=== PATIENT | female | born 1955 | race Caucasian/White ===

== ENCOUNTER 2017-01-03 06:15 | Inpatient (IN) ==
[2017-01-03] MEDS ORDERED: ALBUTEROL/IPRATROPIUM 3 ML NEB RESP TX STA (06:35)
[2017-01-03] MEDS ORDERED: methylPREDNISolone SOD SUC 125 MG/2 ML VIAL IV STA (06:35)
[2017-01-03] MEDS ORDERED: methylPREDNISolone SOD SUC 125 MG/2 ML VIAL ONE (06:42)
--- NOTE | 2017-01-03 06:42 | Emergency Department Note ---
Brian Ruffin Mantricia, am scribing for, and in the presence of, Juan Jose Rossi MD 06:39. Enid Ruffin James D, MD, personally performed the services described in this documentation, ascribed by Anitra Torres in my presence, and it is both accurate and complete 642 . Arrival - Arrival Chief Complaint: Shortness of Breath Stated Complaint: sob ED Nursing Triage Note: Patient stated that she requested that she be brought to the doctor yesterday afternoon to be seen for possible pneumonia. The correction staff stated that the patient was seen and they did not see where the patient needed to be seen in the er. correction staff stated that the patient started complaoining of severe shortness of breath and cramping this morning around 0500 Mode of Arrival: Stretcher Limitations: No Limitations Source: Patient, RN Notes Reviewed - History of Present Illness HPI Narrative: Pt is a 61 y/o white female arriving to ED by EMS with c/o SOB that onset 0500 this morning. Pt was seen by doctor yesterday for evaluation of possible pneumonia. She also c/o cramps throughout her ribs and back and midsternal chest pain. Pt is a resident at [facility]. She reports that she has always been SOB but worsened today. Pt states that she uses a nebulizer with minimal relief. Pt has a stent placed. She reports no other complaints to ED. patient is well-known to the emergency department with multiple admissions for exacerbation of COPD. She is now followed by Dr. Juanita Mckenzie. Patient admits that she continues to smoke cigarettes. Onset (ago): hour(s) Consistency: constant Severity: mild Allergies/Adverse Reactions: Allergies Allergy/AdvReac Type Severity Reaction Status Date / Time codeine Allergy HIVES, Verified 08/02/16 23:06 Nausea levofloxacin [From Levaquin] Allergy RASH Verified 08/03/16 00:24 Home Medications: Home Medications Medication Instructions Recorded Confirmed Type Clopidogrel [Plavix] 75 mg PO DAILY #30 tablet 08/09/16 01/03/17 Rx Aspirin [Ecotrin] 81 mg PO DAILY 09/09/16 01/03/17 History Atorvastatin [Lipitor] 20 mg PO BEDTIME #30 tablet 09/19/16 01/03/17 Rx Docusate Sodium Cap [Colace Cap] 100 mg PO BID PRN #60 capsule 09/19/16 Rx Acetaminophen Tab [Tylenol Tab] 650 mg PO Q4H PRN #0 tablet 09/27/16 01/03/17 Rx Albuterol/Ipratropium Neb [Duoneb] 3 ml RESP TX RT Q6H 09/27/16 01/03/17 Rx HYDROcodone/ACETAMIN 10-325 [[place] 1 tablet PO Q6H PRN #20 tablet 09/27/1601/03 Rx 10-325] Lactulose Liquid [Chronulac] 20 gm PO Q4H PRN #0 09/27/16 01/03/17 Rx Oxybutynin Xl [Ditropan Xl] 10 mg PO DAILY tablet 09/27/16 01/03/17 Rx Pantoprazole Tab [Protonix Tab] 40 mg PO BID #60 tablet 09/27/16 01/03/17 Rx Azithromycin Tab [Zithromax Tab] 500 mg PO DAILY #3 tablet 10/05/16 01/03/17 Rx Diazepam Tab [Valium Tab] 2 mg PO TID PRN #30 tablet 10/05/16 01/03/17 Rx predniSONE TAB [PredniSONE] 20 mg PO DAILY #20 tablet 10/05/16 01/03/17 Rx Review of System - Review of System 12 point system: reviewed and no additional remarkable complaints except as stated - Review of System Constitutional: Absent: chills, diaphoresis, fever Respiratory: Present: other (SOB). Absent: cough Cardiovascular: Present: chest pain, other ("rib cramping") Gastrointestinal: Absent: abdominal pain, nausea, vomiting, diarrhea Medical,Surgical,& Family Hx - Medical History Cardio: History of: CAD, [place] Psychological: History of: Anxiety Disorders, Depression (started 6 months ago) Neurology: History of: Cerebrovascular Accident (non diagnosed but presumed by patient from symptoms), Migraine, TIA HEENT: History of: Eye Problem ("legally blind"), Dental Problems (WEARS DENTURES) No history of: Ear Problem Respiratory: History of: Asthma, Bronchitis, COPD, Intubation, Pneumonia, Respiratory Problems Genitourinary: History of: Bladder Problem (Incontinence), Recurring Urinary Tract Infections, Problems (stress incontinence) Gastrointestinal: History of: Hemorrhoids Musculoskeletal: History of: Back/Neck Problems, Musculoskeletal Problems ( SCOLIOSIS) - Surgical History Cardiac Surgeries: Sugical HX of: Cardiac Catheterization (July 2016) Patient Denies: Femoral-Popliteal Bypass Graft, Cardiac Surgery, Carotid Endarterectomy, Internal Defibrillator, Vascular Access Devices Thoracic Surgeries: Patient denies;: Lobectomy Neurologic Surgeries: Patient denies: Neurologic Surgery HEENT Surgeries: Patient denies: Carotid Endarterectomy, Eye Surgery, Thyroid Surgery, Tonsilectomy & Adenoidectomy Abdominal Surgeries: Surgical HX of: Appendectomy, EGD Patient denies: Abdominal Surgery, Cholecystectomy, Colonoscopy, Gastric Bypass Surgery, Hernia Repair, Splenectomy Reproductive Surgeries: Surgical HX of;: Section (x 3), Gynecologic Surgery, Tubal Ligation Patient denies;: Breast Surgery, Dilation and Curettage, Genitourinary Surgery, Hysterectomy - Family History Family History: Reports;: Family Cancer (mat aunt (breast)), Family Diabetes ( father, pat gm), Family Heart Disease (mother (chf)), Family Hypertension ( father, son), Family Stroke (MOTHER) Denies;: Family Psychiatric Problems - Social History Smoking Status: Smoker, status unknown Exam Physical Examination: ADULT: GENERAL: This is a frail, chronically and acutely ill-appearing white female in mild respiratory distress. VITAL SIGNS: Reviewed HEENT: Head is normocephalic and atraumatic. Pupils are equally round and reactive to light. Extraocular movement are intact. Oropharynx is benign with moist mucous membranes. NECK: Neck is soft and supple without tenderness. There are no masses. There is no lymphadenopathy. LUNGS: Decreased breath sounds in all lung phillip with prolonged expiration. Chest rises symmetrically. There is no chest wall tenderness. Severe kyphoscoliosis is present. CV: Heart is regular rate and rhythm without murmurs, rubs, or gallops. ABDOMEN: Abdomen is soft, non-tender to palpation. There are no abnormal masses palpated. There is no organomegaly. Bowel sounds are present and active. SKIN: Skin is warm and dry. No rash. EXTREMITIES: Patient has full range of motion without tenderness. There is no pedal edema. NEUROLOGIC: Awake, alert, and oriented x4. Cranial nerves II through XII are grossly intact. There are no motorsensory deficits. PSYCHIATRIC: Normal affect. Normal mood. Vital Signs: Vital Signs Temperature 98.1 F 01/03/17 06:19 Pulse Rate 118 H 01/03/17 06:42 Respiratory Rate 20 01/03/17 06:42 Blood Pressure 125/89 01/03/17 06:19 O2 Sat by Pulse Oximetry 98 01/03/17 06:42 Course Course Narrative: Rocephin 1 g IV was given in the emergency department along with DuoNeb, and Solu-Medrol IV. - Consultations Consultation #1: Discussed with Dr. Juanita Mckenzie. Patient will be admitted to her service. Initial orders written for her. Upon talking with Dr. Mckenzie, Dr. Mckenzie was terminated by the patient and the patient is now followed by Dr. Coreas at [facility]. Patient will be admitted to the hospitalist service. Time: 06:55 Consultation #2: Discussed with hospitalist. Patient will be admitted to their service. Time: 07:09 Results - Labs CBC & BMP: 01/03/17 06:27 Lab Results: I have reviewed the patients labs Labs: Laboratory Tests 01/03/17 06:27 Troponin I < 0.015 Laboratory Tests 01/03/17 01/03/17 06:27 06:27 INR 1.0 Sodium 138 Potassium 4.6 Chloride 99 Carbon Dioxide 35 H Anion Gap 8.6 BUN 17 Creatinine 0.50 L BUN/Creatinine Ratio 34.00 H Glucose 119 H Magnesium 2.0 - EKG EKG results: interpreted by ERMD - Impressions EKG: Sinus tachycardia with a rate of 116, short OK interval, right atrial enlargement, normal axis. Nonspecific ST-T wave changes. - Diagnostic Findings Procedure: Chest x-ray: image reviewed by me (Hyperinflation bilaterally without significant infiltrates. No cardiomegaly.) Disposition Clinical Impression: COPD exacerbation, Chronic respiratory failure, Chest pain, Nicotine addiction , SIRS (systemic inflammatory response syndrome), Chronic anxiety Case discussed with: patient Disposition: Still a Patient Condition: Stable Time of Disposition: 07:10
[2017-01-03 06:45] LABS: Basophils # 0.1 10*3/uL (0.0-0.2); Basophils % 0.3 % (0.0-0.8); Eosinophils # 0.1 10*3/uL (0.0-0.87); Eosinophils % 0.3 % (0.00-10.9); Hematocrit 44.9 VOL% (35.7-47.0); Hemoglobin 14.3 GM/DL (12.0-16.0); Immature Granulocytes % 1.1 %; Immature Granulocytes Absolute 0.41 #; Lymphocytes % 10.9 % (21.3-54.2); Mean Corpuscular HGB Conc 31.8 GM/DL (32-36); Mean Corpuscular Hemoglobin 29 PG (27-34); Mean Corpuscular Volume 89.8 FL (87-102); Mean Platelet Volume 9.9 FL (9.6-12.0); Monocytes % 5.5 % (1.7-12.7); Neutrophils # 30.4 10*3/uL (1.4-7.4); Neutrophils % 81.9 % (38.7-73.9); Platelet Count 309 T/CUMM (130-400); Red Cell Distribution Width 15.5 % (9.3-17.3); White Blood Count 37.1 T/CUMM (4-12)
[2017-01-03] MEDS ORDERED: ASPIRIN 325 MG TABLET PO STA (06:49)
[2017-01-03] MEDS ORDERED: cefTRIAXone 1,000 MG in SODIUM CHLORIDE 0.9% 100 ML IV STA (06:49)
[2017-01-03 06:51] LABS: PT Patient Result 11.1 SECS; Partial Thromboplastin Time 24.1 SECS (0-40)
[2017-01-03] MEDS ORDERED: SODIUM CHLORIDE 0.9% 500 ML IV STA (06:51)
[2017-01-03] MEDS ORDERED: cefTRIAXone 1,000 MG VIAL ONE (06:55)
[2017-01-03] MEDS ORDERED: SODIUM CHLORIDE 0.9% 100 ML IV ONE (06:55)
[2017-01-03] MEDS ORDERED: ASPIRIN 325 MG TABLET ONE (06:55)
[2017-01-03 06:56] LABS: Alanine Aminotransferase 24 U/L (13-56); Albumin 3.5 G/DL (3.4-5.0); Alkaline Phosphatase 117 U/L (45-117); Aspartate Amino Transferase 29 U/L (0-37); Blood Urea Nitrogen 17 MG/DL (7-18); Calcium 9.6 MG/DL (8.5-10.1); Glucose 119 MG/DL (74-106); Osmolality,Calculated 277.7 MOS/KG (273-304); Potassium 4.6 MMOL/L (3.5-5.1); Sodium 138 MMOL/L (136-145); Total Protein 7.2 G/DL (6.4-8.3); Troponin I Only < 0.015 NG/ML (0.00-0.045)
[2017-01-03] MEDS ORDERED: LORazepam 1 MG TABLET PO STA (06:59)
[2017-01-03] MEDS ORDERED: LORazepam 1 MG TABLET ONE (07:02)
[2017-01-03 07:09] LABS: Eosinophils 2 % (0-10); Hypochromasia 1+; Lymphocytes 7 % (20-55); Microcytosis Slight; Segmented Neutrophils 87 % (50-85); Total Cells Counted 100
[2017-01-03 07:10] LABS: Platelet Estimate Normal
--- NOTE | 2017-01-03 07:11 | XRay Report ---
History short of breath Comparison 10/03/2016 The heart is mildly enlarged. Mediastinal and hilar contours grossly unchanged accounting for rotation The lungs are chronically hyperexpanded with chronic lucency in the upper lung zones There has been development of increasing reticulonodular and hazy opacity in the lower half of the right chest. There are mildly increasing interstitial markings in the left chest Nodular density over the left upper chest similar on prior studies Impression: Interval development of right greater than left infiltrates versus asymmetric edema superimposed on chronic changes. Follow-up until clear recommended PROCEDURE INTERPRETED AT [facility] DEPARTMENT OF RADIOLOGY Final Report Signed by: Dr. Marisol Castillo
--- NOTE | 2017-01-03 08:24 | Hospitalist History & Physical ---
Assessment and Plan - Time spent with patient Time spent with patient: Greater than 30 minutes (1) COPD exacerbation Status: Chronic Assessment and plan: Patient is satting 100% on 2 L oxygen per nasal cannula. We will admit to monitor. Obtain CBC, BMP with mag, ABG, troponin, blood cultures. Will repeat chest x-ray 48 hours. Breathing treatments. Consult pulmonology. Current Visit: No (2) Leukocytosis Status: Resolved Assessment and plan: WBC 37.1. Have ordered blood cultures. Will begin empiric antibiotic therapy was blood cultures are collected. Current Visit: No (3) Pneumonia Status: Acute Assessment and plan: WBC 37.1 Egophony in right middle lobe. Once blood cultures have been obtained , will start empiric antibiotic coverage. Current Visit: No Qualifiers: Pneumonia type: due to unspecified organism Laterality: unspecified laterality (4) Sepsis Status: Resolved Assessment and plan: Patient is tachycardic, white count of 37.1, lactic acid 2.7. Current Visit: No Qualifiers: Sepsis type: sepsis due to unspecified organism Qualified Code(s): A41.9 - Sepsis, unspecified organism (5) Pleuritic chest pain Status: Acute Current Visit: No History of Present Illness Chief complaint: COPD exacerbation History of present illness: Ms. Iniguez is a 61 year old white female resident of [facility] with a past medical history significant for chronic obstructive pulmonary disease, anxiety, panic disorder, coronary artery disease, myocardial infarction lumbar spondylosis, and nicotine abuse who presents to the ED this morning with complaints of shortness of breath and chest pain that onset this morning and 0500. Patient was followed by Dr. Juanita Mckenzie but recently changed to Dr. Lulu Coreas. At the time of presentation, the patient does complain of worsening shortness of breath, midsternal chest pain that is reproducible to palpation, and costochondral pain as well as back cramps. Patient states she has never had these cramps alongside her size and back before. She confirms headache, shortness of breath, chest pain, nonproductive cough, wheezing, nausea, and decreased appetite. She denies blurry vision, radiating chest pain, vomiting, edema. Lab work at a time admission reveals: WBC 37.1, sodium 138, potassium 4.6, carbon dioxide 35, BUN 17, creatinine 0.50, glucose 119, lactic acid 2.7. Patient is tachycardic as well so we will use the sepsis order set. Patient is a full code. Home meds have been reviewed and reconciled. Case been discussed with Dr. Rossi, ER physician, and Dr. Melvin, admitting physician, and the patient will be admitted to hospital medicine service for further evaluation and treatment. Home Medications Medication Instructions Recorded Confirmed Type Clopidogrel [Plavix] 75 mg PO DAILY #30 tablet 08/09/16 01/03/17 Rx Aspirin [Ecotrin] 81 mg PO DAILY 09/09/16 01/03/17 History Atorvastatin [Lipitor] 20 mg PO BEDTIME #30 tablet 09/19/16 01/03/17 Rx Docusate Sodium Cap [Colace Cap] 100 mg PO BID PRN #60 capsule 09/19/16 Rx Acetaminophen Tab [Tylenol Tab] 650 mg PO Q4H PRN #0 tablet 09/27/16 01/03/17 Rx Albuterol/Ipratropium Neb [Duoneb] 3 ml RESP TX RT Q6H 09/27/16 01/03/17 Rx HYDROcodone/ACETAMIN 10-325 [[place] 1 tablet PO Q6H PRN #20 tablet 09/27/1601/03 Rx 10-325] Lactulose Liquid [Chronulac] 20 gm PO Q4H PRN #0 09/27/16 01/03/17 Rx Oxybutynin Xl [Ditropan Xl] 10 mg PO DAILY tablet 09/27/16 01/03/17 Rx Pantoprazole Tab [Protonix Tab] 40 mg PO BID #60 tablet 09/27/16 01/03/17 Rx Azithromycin Tab [Zithromax Tab] 500 mg PO DAILY #3 tablet 10/05/16 01/03/17 Rx Diazepam Tab [Valium Tab] 2 mg PO TID PRN #30 tablet 10/05/16 01/03/17 Rx predniSONE TAB [PredniSONE] 20 mg PO DAILY #20 tablet 10/05/16 01/03/17 Rx Allergies Allergy/AdvReac Type Severity Reaction Status Date / Time codeine Allergy HIVES, Verified 08/02/16 23:06 Nausea levofloxacin [From Levaquin] Allergy RASH Verified 08/03/16 00:24 Medical,Surgical,& Family Hx - Medical History Cardio: History of: CAD, [place] Psychological: History of: Anxiety Disorders, Depression (started 6 months ago) Neurology: History of: Cerebrovascular Accident (non diagnosed but presumed by patient from symptoms), Migraine, TIA HEENT: History of: Eye Problem ("legally blind"), Dental Problems (WEARS DENTURES) No history of: Ear Problem Respiratory: History of: Asthma, Bronchitis, COPD, Intubation, Pneumonia, Respiratory Problems Genitourinary: History of: Bladder Problem (Incontinence), Recurring Urinary Tract Infections, Problems (stress incontinence) Gastrointestinal: History of: Hemorrhoids Musculoskeletal: History of: Back/Neck Problems, Musculoskeletal Problems ( SCOLIOSIS) - Surgical History Cardiac Surgeries: Sugical HX of: Cardiac Catheterization (July 2016) Patient Denies: Femoral-Popliteal Bypass Graft, Cardiac Surgery, Carotid Endarterectomy, Internal Defibrillator, Vascular Access Devices Thoracic Surgeries: Patient denies;: Lobectomy Neurologic Surgeries: Patient denies: Neurologic Surgery HEENT Surgeries: Patient denies: Carotid Endarterectomy, Eye Surgery, Thyroid Surgery, Tonsilectomy & Adenoidectomy Abdominal Surgeries: Surgical HX of: Appendectomy, EGD Patient denies: Abdominal Surgery, Cholecystectomy, Colonoscopy, Gastric Bypass Surgery, Hernia Repair, Splenectomy Reproductive Surgeries: Surgical HX of;: Section (x 3), Gynecologic Surgery, Tubal Ligation Patient denies;: Breast Surgery, Dilation and Curettage, Genitourinary Surgery, Hysterectomy - Family History Family History: Reports;: Family Cancer (mat aunt (breast)), Family Diabetes ( father, pat gm), Family Heart Disease (mother (chf)), Family Hypertension ( father, son), Family Stroke (MOTHER) Denies;: Family Psychiatric Problems - Social History Smoking Status: Smoker, status unknown Frequency of Alcohol Use: None Type of Drug Use: None Marital Status: Single Lives With:: senior living Functional capacity: independent ambulation 12 point system: reviewed and no additional remarkable complaints except as stated Exam - Constitutional Vitals: Period Temp Pulse Resp BP Sys/Cabrales Pulse Ox Last 24 Hr 98.1 F-98.1 F 110-122 20-24 125-145/41-89 97-100 General appearance: normal weight, mild distress - Head Head exam: Present: normal inspection, normocephalic - Eye Eye exam: Present: EOMI Pupils: Present: PHI - ENT ENT exam: Present: normal exam - Neck Neck exam: Present: normal inspection - Respiratory Respiratory exam: Present: decreased breath sounds, rales, wheezes - Cardiovascular Cardiovascular exam: Present: tachycardia. Absent: carotid bruit - GI/Abdominal GI/Abdominal exam: Present: normal bowel sounds, soft. Absent: ascites, distended, mass, tenderness - Extremities Exam Extremities exam: Present: normal inspection, full ROM. Absent: edema - Back Exam Back exam: Present: normal inspection. Absent: CVA tenderness (L), CVA tenderness (R) - Neurological Exam Neurological exam: Present: alert, oriented X3, reflexes normal - Psychiatric Psychiatric exam: Present: normal affect, normal mood - Skin Skin exam: Present: warm, dry Results - Labs CBC & BMP: 01/03/17 06:27 01/03/17 06:27 Lab Results: I have reviewed the past 24 hour labs - Diagnostic Findings Procedure: Chest x-ray: image reviewed by me, report reviewed by me (Pulmonary infiltrates (right > left), asymmetric edema) Sepsis - Sepsis Classification of Sepsis: Severe Sepsis - Physical Exam Respiratory exam: decreased breath sounds, rales, wheezes Capillary Refill: Less Than 3 Seconds Peripheral pulses: Radial (L): 2+, Radial (R): 2+, Dorsalis Pedis (L) PM: 2+, Dorsalis Pedis (R) PM: 2+, Posterior Tibialis (L): 2+, Posterior Tibialis (R): 2 + Cardiovascular exam: tachycardia Skin exam: normal color
[2017-01-03 08:28] LABS: Apearance,Urine Slightly Hazy (Clear); Bacteria,Urine Occasional /HPF (Few); Bilirubin,Urine Negative (Negative); Blood, Urine Negative (Negative); Glucose,Urine (UA) Negative (Negative); Ketones,Urine Negative (Negative); Mucus,Urine Occasional /LPF (Occasional); Nitrite,Urine Negative (Negative); Protein,Urine 100 MG/DL; RBC,Urine 2 /HPF (0-4); Squamous Epithelial Cell,Urine Occasional /HPF (0-10); Urine Color Yellow (Yellow); Urine Specific Gravity 1.014 (1.001-1.035); WBC,Urine 1 /HPF (0-6)
[2017-01-03] MEDS ORDERED: ONDANSETRON 4 MG/2 ML VIAL IV PRN (08:58)
[2017-01-03] MEDS ORDERED: SODIUM CHLORIDE 0.9% 1,000 ML IV SCH (08:58)
[2017-01-03] MEDS ORDERED: DIAZEPAM 2 MG TABLET PO PRN (09:05)
[2017-01-03] MEDS ORDERED: LACTULOSE 20 GM/30 ML UDCUP PO PRN (09:05)
[2017-01-03] MEDS: SODIUM CHLORIDE 0.9% 1,000 ML IV SCH ×2 (09:11→17:18)
[2017-01-03] MEDS: ACETAMINOPHEN 325 MG TABLET PO PRN ×2 (09:14→20:03)
[2017-01-03] MEDS ORDERED: SODIUM CHLORIDE 0.9% 1,650 ML IV ONE (09:30)
[2017-01-03] MEDS: ASPIRIN EC 81 MG TABLET PO SCH (09:38)
--- NOTE | 2017-01-03 09:40 | EKG Report ---
Stationary ECG Study [facility] ER Test Date: 01/03/2017 6:52:46 AM Pat Name: TREVOR HOPSON Department: Room: 236 Gender: F [employer]ill Worker: : 1955 Requested by: Juan Jose Mcmanus Order Number: [id number] Reading MD: ALEJANDRO BAKER Intervals Hart Rate: 116 P: 82 AR: 115 QRS: 82 QRSD: 75 T: 78 QT: 324 QTc: 393 Interpretive Statements SINUS TACHYCARDIA WITH SHORT AR INTERVAL POOR QUALITY BASELINE Electronically Signed On 01-05-17 15:44:54 CDT by ALEJANDRO BAKER [email or web address]
[2017-01-03 09:50] LABS: Allen Test Positive
[2017-01-03] MEDS: POTASSIUM CHLORIDE 20 MEQ/15 ML UDCUP PO SCH (09:50)
[2017-01-03] MEDS: predniSONE 20 MG TABLET PO SCH (09:51)
[2017-01-03] MEDS: FLUTICASONE/SALMETEROL 250-50 DISKUS 14 DOSE INH SCH ×2 (09:51→20:36)
[2017-01-03] MEDS: PANTOPRAZOLE 40 MG TABLET PO SCH (09:51)
[2017-01-03] MEDS: DOCUSATE SODIUM 100 MG CAPSULE PO SCH ×2 (09:51→20:36)
[2017-01-03] MEDS: CLOPIDOGREL 75 MG TABLET PO SCH (09:51)
[2017-01-03] MEDS: ESCITALOPRAM 10 MG TABLET PO SCH (09:51)
[2017-01-03 09:52] LABS: ABG Base Excess 5.9 MMOL/L (-2.5-2.5); ABG HCO3 29.8 MMOL/L (20-26); ABG Oxygen Saturation 97.4 % (95-100); ABG PCO2 55.1 MM HG (35-48); ABG PH 7.381 (7.35-7.45); ABG PO2 97.2 MM HG (80-95); ABG TCO2 28.9 MMOL/L (23-27)
[2017-01-03] MEDS: OXYBUTYNIN XL 10 MG TABLET PO SCH (09:52)
[2017-01-03] MEDS: ENOXAPARIN 40 MG/0.4 ML SYRINGE SUBCUT SCH (09:52)
[2017-01-03] MEDS: hydroCHLOROthiazide 12.5 MG CAPSULE PO SCH (09:52)
[2017-01-03] MEDS: ALBUTEROL/IPRATROPIUM 3 ML NEB RESP TX SCH ×4 (12:32→23:10)
--- NOTE | 2017-01-03 14:29 | Pulmonology Consult Note ---
Assessment and Plan (1) COPD exacerbation Status: Chronic Assessment and plan: Patient has severe COPD and she is now in with a mild exacerbation. She looks reasonably stable at present. Current Visit: No (2) Pneumonia Status: Acute Assessment and plan: Patient may have some minimal pneumonia in the bases. She will be covered with antibiotics. Current Visit: No Qualifiers: Pneumonia type: due to unspecified organism Laterality: unspecified laterality (3) Tobacco abuse Status: Chronic Assessment and plan: The patient has a long history of smoking and she says she is doing better Current Visit: No (4) Coronary artery disease Status: Acute Assessment and plan: Patient has atypical chest pain but no signs of ischemia at present. Current Visit: No (5) Chronic anxiety Status: Acute Assessment and plan: Patient requires a lot of medications for anxiety. Current Visit: Yes History of Present Illness Chief complaint: Shortness of breath History of present illness: Ms. Iniguez is a 61 year old white female that has a long history of COPD and is now in a half-way. She has home oxygen and says she really cannot walk much without oxygen. She came in with increased chest congestion and chest tightness. She has been coughing a little bit. She did have a fever the last day or so. She comes in now with an exacerbation of her COPD. She has various aches and pains along with her chest pain. She says she has not been eating very well lately. She does use a nebulizer at the half-way and has oxygen . Home Medications Medication Instructions Recorded Confirmed Type Clopidogrel [Plavix] 75 mg PO DAILY #30 tablet 08/09/16 01/03/17 Rx Aspirin [Ecotrin] 81 mg PO DAILY 09/09/16 01/03/17 History Atorvastatin [Lipitor] 20 mg PO BEDTIME #30 tablet 09/19/16 01/03/17 Rx Docusate Sodium Cap [Colace Cap] 100 mg PO BID PRN #60 capsule 09/19/16 Rx Acetaminophen Tab [Tylenol Tab] 650 mg PO Q4H PRN #0 tablet 09/27/16 01/03/17 Rx Lactulose Liquid [Chronulac] 20 gm PO Q4H PRN #0 09/27/16 01/03/17 Rx Oxybutynin Xl [Ditropan Xl] 10 mg PO DAILY tablet 09/27/16 01/03/17 Rx Diazepam Tab [Valium Tab] 2 mg PO BID PRN 01/03/17 01/03/17 History Escitalopram Oxalate [Lexapro] 5 mg PO DAILY 01/03/17 01/03/17 History Fluticasone/Salmeterol 250-50 1 puff INH BID 01/03/17 01/03/17 History [Advair 250-50] Ipratropium Neb [Atrovent Neb] 500 mcg RESP TX RT Q6H 01/03/17 01/03/17 History Levalbuterol Neb [Xopenex Neb] 1.25 mg RESP TX RT Q6H 01/03/17 01/03/17 History Melatonin/Pyridoxine [Melatonin 5 10 mg PO BEDTIME 01/03/17 01/03/17 History mg Tablet] Nitroglycerin [Nitroglycerin SL 0.4 mg SL Q5M PRN 01/03/17 01/03/17 History Tab] Omeprazole Magnesium [Prilosec Otc] 20 mg PO BEDTIME 01/03/17 01/03/17 History Oxycodone HCl/Acetaminophen 1 each PO TID 01/03/17 01/03/17 History [Percocet 10-325 mg Tablet] Potassium Chloride Liquid 10 meq PO DAILY 01/03/17 01/03/17 History hydroCHLOROthiazide 12.5 mg PO DAILY 01/03/17 01/03/17 History [Hydrochlorothiazide] predniSONE TAB [PredniSONE] 20 mg PO DAILY 01/03/17 01/03/17 History traZODone [Desyrel] 25 mg PO BEDTIME 01/03/17 01/03/17 History Allergies Allergy/AdvReac Type Severity Reaction Status Date / Time codeine Allergy HIVES, Verified 08/02/16 23:06 Nausea levofloxacin [From Levaquin] Allergy RASH Verified 08/03/16 00:24 Review of systems: - Constitutional Constitutional: Present: fatigue, weight loss. Absent: chills, fever(s) - EENT Eyes: Absent: loss of vision Ears: Absent: decreased hearing Nose, mouth and throat: Absent: dysphagia, hoarseness, sinus pressure - Cardiovascular Cardiovascular: Present: chest pain at rest, dyspnea. Absent: orthopnea, palpitations, PND - Respiratory Respiratory: Present: cough, dyspnea, wheezing, pain on inspiration. Absent: hemoptysis, change in phlegm color - Gastrointestinal Gastrointestinal: Absent: abdominal pain, change in bowel habits, vomiting. She says she has been nauseated and had a poor appetite lately. - Genitourinary Genitourinary: Absent: dysuria, hematuria, urinary frequency - Musculoskeletal Musculoskeletal: Present: muscle weakness. Absent: arthralgias - Neurological Neurological: Absent: abnormal speech, focal weakness - Psychiatric Psychiatric: Present: anxiety Exam (Pulmonay) H&P - Constitutional Vitals: Period Temp Pulse Resp BP Sys/Cabrales Pulse Ox Last 24 Hr 97.5 F-98.5 F 98-122 18-24 125-145/41-89 95-100 General appearance: mild distress, under weight - Head Head exam: Present: normal inspection, normocephalic - Eye Eye exam: Present: EOMI. Absent: scleral icterus Pupils: Present: PHI - ENT ENT exam: Present: normal exam - Neck Neck exam: Present: normal inspection. Absent: lymphadenopathy, thyromegaly - Respiratory Respiratory exam: Present: decreased breath sounds, prolonged expiratory phase, wheezes - Cardiovascular Cardiovascular exam: Present: regular rate and rhythm. Absent: gallop, systolic murmur - GI/Abdominal GI/Abdominal exam: Present: normal bowel sounds, soft. Absent: distended, organomegaly, tenderness - Extremities Exam Extremities exam: Absent: calf tenderness, edema - Neurological Exam Neurological exam: Present: alert, oriented X3 - Psychiatric Psychiatric exam: Present: anxious - Skin Skin exam: Present: warm, dry Medical,Surgical,& Family Hx - Medical History Cardio: History of: CAD, [place] Psychological: History of: Anxiety Disorders, Depression (started 6 months ago) Neurology: History of: Cerebrovascular Accident (non diagnosed but presumed by patient from symptoms), Migraine, TIA HEENT: History of: Eye Problem ("legally blind"), Dental Problems (WEARS DENTURES) No history of: Ear Problem Respiratory: History of: Asthma, Bronchitis, COPD, Intubation, Pneumonia, Respiratory Problems Genitourinary: History of: Bladder Problem (Incontinence), Recurring Urinary Tract Infections, Problems (stress incontinence) Gastrointestinal: History of: Hemorrhoids Musculoskeletal: History of: Back/Neck Problems, Musculoskeletal Problems ( SCOLIOSIS) - Surgical History Cardiac Surgeries: Sugical HX of: Cardiac Catheterization (July 2016) Patient Denies: Femoral-Popliteal Bypass Graft, Cardiac Surgery, Carotid Endarterectomy, Internal Defibrillator, Vascular Access Devices Thoracic Surgeries: Patient denies;: Lobectomy Neurologic Surgeries: Patient denies: Neurologic Surgery HEENT Surgeries: Patient denies: Carotid Endarterectomy, Eye Surgery, Thyroid Surgery, Tonsilectomy & Adenoidectomy Abdominal Surgeries: Surgical HX of: Appendectomy, EGD Patient denies: Abdominal Surgery, Cholecystectomy, Colonoscopy, Gastric Bypass Surgery, Hernia Repair, Splenectomy Reproductive Surgeries: Surgical HX of;: Section (x 3), Gynecologic Surgery, Tubal Ligation Patient denies;: Breast Surgery, Dilation and Curettage, Genitourinary Surgery, Hysterectomy - Family History Family History: Reports;: Family Cancer (mat aunt (breast)), Family Diabetes ( father, pat gm), Family Heart Disease (mother (chf)), Family Hypertension ( father, son), Family Stroke (MOTHER) Denies;: Family Psychiatric Problems - Social History Smoking Status: Smoker, status unknown Frequency of Alcohol Use: None Type of Drug Use: None Results - Labs CBC & BMP: 01/03/17 06:27 01/03/17 06:27 Labs: Her PO2 is 97 with a PCO2 of 55 and a pH of 7.38 - Diagnostic Findings Procedure: Chest x-ray: image reviewed by me, report reviewed by me (Chest x- ray shows COPD changes. There may be some mild infiltrates in the bases.)
[2017-01-03] MEDS: traZODone 50 MG TABLET PO SCH (20:35)
[2017-01-03] MEDS: ATORVASTATIN 40 MG TABLET PO SCH (20:36)
[2017-01-03] MEDS ORDERED: NON-FORMULARY MEDICATION (Omeprazole Magnesium [Prilosec Otc] 20 MG) PO SCH (21:00)
[2017-01-04] MEDS: SODIUM CHLORIDE 0.9% 1,000 ML IV SCH ×3 (02:03→18:02)
[2017-01-04] MEDS: ALBUTEROL/IPRATROPIUM 3 ML NEB RESP TX SCH ×6 (03:40→23:49)
[2017-01-04 05:36] LABS: Basophils % 0.1 % (0.0-0.8); Hematocrit 34.7 VOL% (35.7-47.0); Hemoglobin 10.7 GM/DL (12.0-16.0); Immature Granulocytes % 0.9 %; Immature Granulocytes Absolute 0.16 #; Lymphocytes # 0.8 10*3/uL (1.4-4.0); Lymphocytes % 4.8 % (21.3-54.2); Mean Corpuscular HGB Conc 30.8 GM/DL (32-36); Mean Corpuscular Hemoglobin 28 PG (27-34); Mean Corpuscular Volume 91.1 FL (87-102); Mean Platelet Volume 10.1 FL (9.6-12.0); Monocytes # 0.8 10*3/uL (0.11-0.8); Monocytes % 4.4 % (1.7-12.7); Neutrophils # 15.8 10*3/uL (1.4-7.4); Neutrophils % 89.8 % (38.7-73.9); Platelet Count 258 T/CUMM (130-400); Red Blood Count 3.81 MC/CUMM (3.8-5.5); White Blood Count 17.6 T/CUMM (4-12)
[2017-01-04 06:11] LABS: Hypochromasia 1+; Lymphocytes 5 % (20-55); Microcytosis Slight; Platelet Estimate Adequate; Segmented Neutrophils 94 % (50-85); Total Cells Counted 100
[2017-01-04 06:12] LABS: Calcium 8.2 MG/DL (8.5-10.1); Osmolality,Calculated 282.1 MOS/KG (273-304); Potassium 5.1 MMOL/L (3.5-5.1)
--- NOTE | 2017-01-04 08:05 | XRay Report ---
History short of breath Comparison 01/03/2017 Patient is rotated resulting These are shifted to the right. The accounting for this hilar contours are grossly unchanged. The heart is mildly enlarged The lungs are hyperexpanded with bilateral reticulonodular pulmonary opacities and minimal patchy opacities over the lung bases. No more focal consolidation seen Impression: Continued diffuse bilateral interstitial infiltrates versus edema superimposed on chronic changes. Follow-up recommended PROCEDURE INTERPRETED AT [facility] DEPARTMENT OF RADIOLOGY Final Report Signed by: Dr. Marisol Castillo
[2017-01-04] MEDS: cefTRIAXone 1,000 MG in SODIUM CHLORIDE 0.9% 100 ML IV SCH (08:42)
[2017-01-04] MEDS: ENOXAPARIN 40 MG/0.4 ML SYRINGE SUBCUT SCH (08:43)
[2017-01-04] MEDS: ESCITALOPRAM 10 MG TABLET PO SCH (08:43)
[2017-01-04] MEDS: POTASSIUM CHLORIDE 20 MEQ/15 ML UDCUP PO SCH (08:43)
[2017-01-04] MEDS: hydroCHLOROthiazide 12.5 MG CAPSULE PO SCH (08:43)
[2017-01-04] MEDS: PANTOPRAZOLE 40 MG TABLET PO SCH (08:45)
[2017-01-04] MEDS: OXYBUTYNIN XL 10 MG TABLET PO SCH (08:45)
[2017-01-04] MEDS: ASPIRIN EC 81 MG TABLET PO SCH (08:45)
[2017-01-04] MEDS: predniSONE 20 MG TABLET PO SCH (08:45)
[2017-01-04] MEDS: DOCUSATE SODIUM 100 MG CAPSULE PO SCH ×2 (08:45→21:40)
[2017-01-04] MEDS: CLOPIDOGREL 75 MG TABLET PO SCH (08:45)
[2017-01-04] MEDS: FLUTICASONE/SALMETEROL 250-50 DISKUS 14 DOSE INH SCH ×2 (08:48→21:40)
--- NOTE | 2017-01-04 11:55 | Pulmonology Progress Note ---
Pulmonary - PN: Subj Interval history: Patient is a 61-year-old white lady that has very severe COPD. She cannot do much activity at all without being short of breath. She is chronically on oxygen. She has lateral wall chest tightness but no angina. She has not coughing up much sputum now. She says she feels a little better than yesterday. She is tolerating her treatment fairly well. Exam (Progress Note) - Constitutional Vitals: Period Temp Pulse Resp BP Sys/Cabrales Pulse Ox Last 24 Hr 96.6 F-98.8 F 81-102 18-22 100-138/55-70 86-100 Exam: General appearance: mild distress, under weight, she is reasonably comfortable in bed but is always short of breath. - Head Head exam: Present: normal inspection, normocephalic - Eye Eye exam: Present: EOMI. Absent: scleral icterus Pupils: Present: PHI - ENT ENT exam: Present: normal exam - Neck Neck exam: Present: normal inspection. Absent: lymphadenopathy, thyromegaly - Respiratory Respiratory exam: Present: She has a very prolonged expiration with distant breath sounds and mild rhonchi. - Cardiovascular Cardiovascular exam: Present: regular rate and rhythm. Absent: gallop, systolic murmur - GI/Abdominal GI/Abdominal exam: Present: normal bowel sounds, soft. Absent: distended, organomegaly, tenderness - Extremities Exam Extremities exam: Absent: calf tenderness, edema, there are no signs of phlebitis. - Neurological Exam Neurological exam: Present: alert, oriented X3 - Psychiatric Psychiatric exam: Present: anxious - Skin Skin exam: Present: warm, dry Results - Labs CBC & BMP: 01/04/17 04:28 01/04/17 04:28 - Diagnostic Findings Procedure: Chest x-ray: image reviewed by me, report reviewed by me (Chest x- ray shows COPD changes but no infiltrates.) Assessment and Plan (1) COPD exacerbation Status: Chronic Assessment and plan: Patient has severe COPD and she is now in with a mild exacerbation. She is tolerating her medicines fairly well. She is comfortable on oxygen but cannot do much activity. Current Visit: No (2) Pneumonia Status: Acute Assessment and plan: Patient may have some minimal pneumonia in the bases. She will be covered with antibiotics. Chest x-ray looks better today. Current Visit: No Qualifiers: Pneumonia type: due to unspecified organism Laterality: unspecified laterality (3) Tobacco abuse Status: Chronic Assessment and plan: The patient has a long history of smoking and she says she is doing better. Current Visit: No (4) Coronary artery disease Status: Acute Assessment and plan: Patient has atypical chest pain but no signs of ischemia at present. Current Visit: No (5) Chronic anxiety Status: Acute Assessment and plan: Patient requires a lot of medications for anxiety. She looks like she is a little calmer today. Current Visit: Yes
[2017-01-04] MEDS ORDERED: LEVOFLOXACIN INJ 750 MG in PREMIX 1 EACH IV SCH (12:00)
[2017-01-04] MEDS: VANCOMYCIN INJ 750 MG in SODIUM CHLORIDE 0.9% 250 ML IV SCH ×2 (12:13→23:32)
[2017-01-04] MEDS: LORazepam 1 MG TABLET PO PRN ×2 (13:32→21:40)
--- NOTE | 2017-01-04 15:24 | Hospitalist Progress Note ---
Assessment and Plan (1) Gram-positive bacteremia Status: Acute Assessment and plan: Continue ceftriaxone and add vancomycin in the meantime. Will recheck blood culture reports tomorrow attention be paid to the antibiogram Current Visit: Yes (2) Lactic acidosis Status: Acute Assessment and plan: This is resolved. Most likely secondary to the sepsis and the patient came in with Current Visit: Yes (3) Sepsis Status: Acute Assessment and plan: As above is doing better Current Visit: Yes (4) COPD exacerbation Status: Chronic Assessment and plan: Patient is improved continue respiratory treatments Current Visit: No (5) Leukocytosis Status: Resolved Current Visit: No (6) Generalized anxiety disorder Status: Acute Assessment and plan: On Ativan 1 mg p.o. every 6 hours as needed. We will continue to observe on the floor. Watch minute ventilation status closely. Current Visit: Yes Hospitalist: Subjective Interval history: Patient has been seen interviewed and examined and chart has been reviewed admitted to the hospital with exacerbation of COPD very high white count. Noted today to be growing gram-positive cocci in pairs and clusters in blood. She has responded to the initial antibiotics and will continue that empiric choice in the meantime. Is complaining of being very anxious uses Valium at the senior care. Does not want to use Xanax here but prefers to use Ativan. Was given some Ativan yesterday orally and did well. This will be continued on the floor Exam - Constitutional Vitals: Period Temp Pulse Resp BP Sys/Cabrales Pulse Ox Last 24 Hr 96.6 F-97.7 F 81-96 18-22 100-129/55-65 94-99 General appearance: normal weight - Head Head exam: Present: normocephalic, atraumatic - Eye Eye exam: Present: EOMI Pupils: Present: PHI - Respiratory Respiratory exam: Present: clear to auscultation bilaterally, other (No active wheezing at this time) - Cardiovascular Cardiovascular exam: Present: regular rate and rhythm, other (Distant lung sounds however) - GI/Abdominal GI/Abdominal exam: Present: normal bowel sounds, soft - Extremities Exam Extremities exam: Present: full ROM - Neurological Exam Neurological exam: Present: alert, oriented X3, CN II-XII intact, other ( Moderate anxiety) - Psychiatric Psychiatric exam: Present: normal affect, normal mood - Skin Skin exam: Present: normal color, warm, dry Results - Labs CBC & BMP: 01/04/17 04:28 01/04/17 04:28 Lab Results: I have reviewed the past 24 hour labs
[2017-01-04] MEDS: ATORVASTATIN 40 MG TABLET PO SCH (21:40)
[2017-01-04] MEDS: traZODone 50 MG TABLET PO SCH (21:40)
[2017-01-05] MEDS: ALBUTEROL/IPRATROPIUM 3 ML NEB RESP TX SCH ×6 (03:04→23:57)
[2017-01-05] MEDS: SODIUM CHLORIDE 0.9% 1,000 ML IV SCH ×2 (03:10→11:33)
[2017-01-05] MEDS: LORazepam 1 MG TABLET PO PRN ×3 (07:18→21:34)
--- NOTE | 2017-01-05 08:23 | XRay Report ---
XR chest 1V portable Indication: SOB Comparison: Chest x-ray dated January 04, 2017 Technique: Single frontal view of the chest. Findings: The cardiomediastinal silhouette is stable in configuration. Chronic/fibrotic change of the lungs again suggested with continued nonspecific prominence of the bilateral pulmonary interstitial markings. Visualized osseous and surrounding soft tissue structures appear grossly unchanged. IMPRESSION: No significant interval change. PROCEDURE INTERPRETED AT [facility] DEPARTMENT OF RADIOLOGY Final Report Signed by: Dr Christo Esparza
[2017-01-05] MEDS ORDERED: NICOTINE 7 MG/24 HR PATCH TRANSDERM PRN (08:26)
[2017-01-05] MEDS: ASPIRIN EC 81 MG TABLET PO SCH (09:24)
[2017-01-05] MEDS: DOCUSATE SODIUM 100 MG CAPSULE PO SCH ×2 (09:24→21:30)
[2017-01-05] MEDS: CLOPIDOGREL 75 MG TABLET PO SCH (09:24)
[2017-01-05] MEDS: ESCITALOPRAM 10 MG TABLET PO SCH (09:24)
[2017-01-05] MEDS: POTASSIUM CHLORIDE 20 MEQ/15 ML UDCUP PO SCH (09:24)
[2017-01-05] MEDS: predniSONE 20 MG TABLET PO SCH (09:24)
[2017-01-05] MEDS: OXYBUTYNIN XL 10 MG TABLET PO SCH (09:24)
[2017-01-05] MEDS: hydroCHLOROthiazide 12.5 MG CAPSULE PO SCH (09:24)
[2017-01-05] MEDS: ENOXAPARIN 40 MG/0.4 ML SYRINGE SUBCUT SCH (09:24)
[2017-01-05] MEDS: PANTOPRAZOLE 40 MG TABLET PO SCH (09:24)
[2017-01-05] MEDS: FLUTICASONE/SALMETEROL 250-50 DISKUS 14 DOSE INH SCH ×2 (09:25→21:38)
[2017-01-05] MEDS: cefTRIAXone 1,000 MG in SODIUM CHLORIDE 0.9% 100 ML IV SCH (09:26)
--- NOTE | 2017-01-05 10:52 | Pulmonology Progress Note ---
Pulmonary - PN: Subj Interval history: Patient is a 61-year-old white lady that has very severe COPD. She cannot do much activity at all without being short of breath. She is chronically on oxygen. She has lateral wall chest tightness but no angina. She still says her lower rib cage hurts. She is not doing much activity. Overall she is about the same. Exam (Progress Note) - Constitutional Vitals: Period Temp Pulse Resp BP Sys/Cabrales Pulse Ox Last 24 Hr 97.1 F-98.2 F 75-96 18-22 110-155/60-77 93-99 Exam: General appearance: mild distress, under weight, she is reasonably comfortable in bed but is always short of breath. - Head Head exam: Present: normal inspection, normocephalic - Eye Eye exam: Present: EOMI. Absent: scleral icterus Pupils: Present: PHI - ENT ENT exam: Present: normal exam - Neck Neck exam: Present: normal inspection. Absent: lymphadenopathy, thyromegaly - Respiratory Respiratory exam: Present: She has a very prolonged expiration with distant breath sounds she does have faint wheezing. - Cardiovascular Cardiovascular exam: Present: regular rate and rhythm. Absent: gallop, systolic murmur - GI/Abdominal GI/Abdominal exam: Present: normal bowel sounds, soft. Absent: distended, organomegaly, tenderness - Extremities Exam Extremities exam: Absent: calf tenderness, edema, there are no signs of phlebitis. - Neurological Exam Neurological exam: Present: alert, oriented X3 - Psychiatric Psychiatric exam: Present: anxious - Skin Skin exam: Present: warm, dry Results - Labs CBC & BMP: 01/04/17 04:28 01/04/17 04:28 - Diagnostic Findings Procedure: Chest x-ray: image reviewed by me, report reviewed by me (Chest x- ray shows cardiomegaly with no infiltrates. She does have COPD changes.) Assessment and Plan (1) COPD exacerbation Status: Chronic Assessment and plan: Patient has severe COPD and she is now in with a mild exacerbation. She says he does not feel much better but she has very little reversible disease. Will continue with her present medicines. Current Visit: No (2) Pneumonia Status: Acute Assessment and plan: Patient is not coughing much and her x-ray does not suggest much pneumonia. Current Visit: No Qualifiers: Pneumonia type: due to unspecified organism Laterality: unspecified laterality (3) Tobacco abuse Status: Chronic Assessment and plan: The patient has a long history of smoking and she says she is doing better. Current Visit: No (4) Coronary artery disease Status: Acute Assessment and plan: Patient has atypical chest pain but no signs of ischemia at present. Current Visit: No (5) Chronic anxiety Status: Acute Assessment and plan: Patient requires a lot of medications for anxiety. She looks like she is a little calmer today. Current Visit: Yes
[2017-01-05] MEDS: AMPICILLIN INJ 2,000 MG in SODIUM CHLORIDE 0.9% 100 ML IV SCH ×3 (11:26→23:15)
[2017-01-05] MEDS: methylPREDNISolone SOD SUC 40 MG/1 ML VIAL IV SCH ×2 (11:42→21:37)
[2017-01-05] MEDS: GENTAMICIN INJ 300 MG in SODIUM CHLORIDE 0.9% 100 ML IV SCH (13:48)
--- NOTE | 2017-01-05 14:31 | Hospitalist Progress Note ---
Assessment and Plan (1) Gram-positive bacteremia Status: Acute Assessment and plan: Patient also has a urine isolated of the same and microbiology reporting this to be possibly Enterococcus faecalis. Patient will be put on ampicillin 2 g IV every 6 hours and gentamicin 240 mg IV daily. Discontinue vancomycin and discontinue the ceftriaxone. Repeat BMP magnesium repeat CBC in the morning Current Visit: Yes (2) Lactic acidosis Status: Acute Assessment and plan: This is resolved. Most likely secondary to the sepsis and the patient came in with Current Visit: Yes (3) Sepsis Status: Acute Assessment and plan: As above is doing better Current Visit: Yes (4) COPD exacerbation Status: Chronic Assessment and plan: Patient is improved continue respiratory treatments Current Visit: No (5) Leukocytosis Status: Resolved Current Visit: No (6) Generalized anxiety disorder Status: Acute Assessment and plan: On Ativan 1 mg p.o. every 6 hours as needed. We will continue to observe on the floor. Watch minute ventilation status closely. Current Visit: Yes Hospitalist: Subjective Interval history: Patient has been seen interviewed and examined and chart has been admitted to the hospital with acute exacerbation of COPD lower respiratory infection and gram-positive bacteremia with gram-positive urinary tract isolate. Having discussed these with microbiology the time that this looks like his Enterococcus faecalis. For the identification and a antibiogram is pending. History of coronary Enterococcus faecalis is penicillin sensitive. Given the fact that the patient has bacteremia she will need addition of an aminoglycoside for treatment.. Blood cultures have been ordered. Repeat blood cultures are positive patient will need to have an echocardiogram. Exam - Constitutional Vitals: Period Temp Pulse Resp BP Sys/Cabrales Pulse Ox Last 24 Hr 97.1 F-98.4 F 75-96 18-22 121-155/63-79 93-99 General appearance: no acute distress, mild distress - Head Head exam: Present: normocephalic, atraumatic - Eye Eye exam: Present: EOMI Pupils: Present: PHI - Respiratory Respiratory exam: Present: other (Distant lung sounds no active wheezing) - Cardiovascular Cardiovascular exam: Present: regular rate and rhythm - GI/Abdominal GI/Abdominal exam: Present: normal bowel sounds, soft - Extremities Exam Extremities exam: Present: full ROM - Neurological Exam Neurological exam: Present: alert, oriented X3, CN II-XII intact - Psychiatric Psychiatric exam: Present: normal affect, normal mood - Skin Skin exam: Present: normal color, warm, dry Results - Labs CBC & BMP: 01/04/17 04:28 01/04/17 04:28 Lab Results: I have reviewed the past 24 hour labs
[2017-01-05] MEDS: ATORVASTATIN 40 MG TABLET PO SCH (21:30)
[2017-01-05] MEDS: traZODone 50 MG TABLET PO SCH (21:30)
[2017-01-06] MEDS: ALBUTEROL/IPRATROPIUM 3 ML NEB RESP TX SCH ×5 (03:17→19:27)
[2017-01-06 03:23] LABS: Basophils % 0.1 % (0.0-0.8); Hematocrit 35.7 VOL% (35.7-47.0); Hemoglobin 11.2 GM/DL (12.0-16.0); Immature Granulocytes % 0.6 %; Immature Granulocytes Absolute 0.06 #; Lymphocytes # 0.2 10*3/uL (1.4-4.0); Lymphocytes % 2.3 % (21.3-54.2); Mean Corpuscular HGB Conc 31.4 GM/DL (32-36); Mean Corpuscular Hemoglobin 28 PG (27-34); Mean Corpuscular Volume 88.6 FL (87-102); Mean Platelet Volume 10.1 FL (9.6-12.0); Monocytes # 0.2 10*3/uL (0.11-0.8); Neutrophils # 9.5 10*3/uL (1.4-7.4); Platelet Count 268 T/CUMM (130-400); Red Blood Count 4.03 MC/CUMM (3.8-5.5); Red Cell Distribution Width 14.6 % (9.3-17.3)
[2017-01-06 03:52] LABS: Calcium 8.6 MG/DL (8.5-10.1); Osmolality,Calculated 279.5 MOS/KG (273-304); Potassium 3.9 MMOL/L (3.5-5.1)
[2017-01-06] MEDS: AMPICILLIN INJ 2,000 MG in SODIUM CHLORIDE 0.9% 100 ML IV SCH ×4 (03:57→21:44)
[2017-01-06 04:12] LABS: Lymphocytes 3 % (20-55); Platelet Estimate Normal; Segmented Neutrophils 96 % (50-85); Total Cells Counted 100
[2017-01-06] MEDS: methylPREDNISolone SOD SUC 40 MG/1 ML VIAL IV SCH ×3 (05:55→21:15)
[2017-01-06] MEDS: CLOPIDOGREL 75 MG TABLET PO SCH (08:25)
[2017-01-06] MEDS: hydroCHLOROthiazide 12.5 MG CAPSULE PO SCH (08:25)
[2017-01-06] MEDS: PANTOPRAZOLE 40 MG TABLET PO SCH (08:26)
[2017-01-06] MEDS: ESCITALOPRAM 10 MG TABLET PO SCH (08:26)
[2017-01-06] MEDS: OXYBUTYNIN XL 10 MG TABLET PO SCH (08:26)
[2017-01-06] MEDS: LORazepam 1 MG TABLET PO PRN ×3 (08:26→21:00)
[2017-01-06] MEDS: ASPIRIN EC 81 MG TABLET PO SCH (08:27)
[2017-01-06] MEDS: POTASSIUM CHLORIDE 20 MEQ/15 ML UDCUP PO SCH (08:27)
[2017-01-06] MEDS: DOCUSATE SODIUM 100 MG CAPSULE PO SCH ×2 (08:27→21:00)
[2017-01-06] MEDS: ENOXAPARIN 40 MG/0.4 ML SYRINGE SUBCUT SCH (08:28)
[2017-01-06] MEDS: FLUTICASONE/SALMETEROL 250-50 DISKUS 14 DOSE INH SCH ×2 (08:35→21:13)
--- NOTE | 2017-01-06 09:26 | XRay Report ---
XR chest 1V portable Indication: Shortness of breath Comparison: 05 January 2017 Findings: The heart and mediastinum are normal in size and configuration. The pulmonary vascularity is prominent but similar to previous exams. Lung volumes are increased with prominent bronchial markings. No lung infiltrates, effusions, pneumothorax or other abnormality is demonstrated. Impression: Chronic lung changes. No acute process or significant change. PROCEDURE INTERPRETED AT [facility] DEPARTMENT OF RADIOLOGY Final Report Signed by: Dr. Jeremiah Santamaria
--- NOTE | 2017-01-06 09:37 | Pulmonology Progress Note ---
Pulmonary - PN: Subj Interval history: Patient is a 61-year-old white lady that has very severe COPD. She cannot do much activity at all without being short of breath. She is chronically on oxygen. She says she is breathing a little better today and feels better. She is not having much sputum production now. Her chest soreness has improved. She says she is eating a little better. Overall she is doing a little better today. Exam (Progress Note) - Constitutional Vitals: Period Temp Pulse Resp BP Sys/Cabrales Pulse Ox Last 24 Hr 97.2 F-98.5 F 79-94 15-20 114-145/67-93 96-99 Exam: General appearance: no distress, under weight, she looks more comfortable today. - Head Head exam: Present: normal inspection, normocephalic - Eye Eye exam: Present: EOMI. Absent: scleral icterus Pupils: Present: PHI - ENT ENT exam: Present: normal exam - Neck Neck exam: Present: normal inspection. Absent: lymphadenopathy, thyromegaly - Respiratory Respiratory exam: Present: She has a very prolonged expiration with distant breath sounds but she is moving air a little better without any wheezing. - Cardiovascular Cardiovascular exam: Present: regular rate and rhythm. Absent: gallop, systolic murmur - GI/Abdominal GI/Abdominal exam: Present: normal bowel sounds, soft. Absent: distended, organomegaly, tenderness - Extremities Exam Extremities exam: Absent: calf tenderness, edema, there are no signs of phlebitis. - Neurological Exam Neurological exam: Present: alert, oriented X3 - Psychiatric Psychiatric exam: Present: She looks calm today. - Skin Skin exam: Present: warm, dry Results - Labs CBC & BMP: 01/06/17 02:45 01/06/17 02:45 Assessment and Plan (1) COPD exacerbation Status: Chronic Assessment and plan: Patient has severe COPD but is doing a little better today. She feels like her breathing is stable. Current Visit: No (2) Pneumonia Status: Acute Assessment and plan: Patient is not coughing much and her x-ray does not suggest much pneumonia. She is tolerating antibiotics. Current Visit: No Qualifiers: Pneumonia type: due to unspecified organism Laterality: unspecified laterality (3) Tobacco abuse Status: Chronic Assessment and plan: The patient has a long history of smoking and she says she is doing better. Current Visit: No (4) Coronary artery disease Status: Acute Assessment and plan: Patient has atypical chest pain but no signs of ischemia at present. Current Visit: No (5) Chronic anxiety Status: Acute Assessment and plan: Patient requires a lot of medications for anxiety. She looks like she is a little calmer today. Current Visit: Yes
--- NOTE | 2017-01-06 11:39 | Hospitalist Progress Note ---
Assessment and Plan (1) Gram-positive bacteremia Status: Acute Assessment and plan: Patient also has a urine isolated of the same and microbiology reporting this to be possibly Enterococcus faecalis. Patient is on ampicillin 2 g IV every 6 hours and gentamicin 240 mg IV daily. Discontinued vancomycin and discontinue the ceftriaxone yesterday. Repeat BMP magnesium repeat CBC in the morning Current Visit: Yes (2) Lactic acidosis Status: Acute Assessment and plan: This is resolved. Most likely secondary to the sepsis and the patient came in with Current Visit: Yes (3) Sepsis Status: Acute Assessment and plan: As above is doing better Current Visit: Yes (4) COPD exacerbation Status: Chronic Assessment and plan: Patient is improved continue respiratory treatments Current Visit: No (5) Leukocytosis Status: Resolved Current Visit: No (6) Generalized anxiety disorder Status: Acute Assessment and plan: Is a lot better today: Communicating without any pressured speech Current Visit: Yes Hospitalist: Subjective Interval history: Patient has been seen interviewed and examined and chart has been reviewed admitted to the hospital with exacerbation of COPD hypoxemia found to have pneumonia and gram-positive bacteremia. She also grew gram-positive cocci in the urine with times a day of Enterococcus faecalis. ID and sensitivity on the blood isolate is still pending repeat blood culture from yesterday are not growing anything yet. Patient states that she is doing better. I started her on ampicillin IV and gentamicin yesterday and the anticipation that we may be dealing with enterococcal bacteremia. Exam - Constitutional Vitals: Period Temp Pulse Resp BP Sys/Cabrales Pulse Ox Last 24 Hr 97.2 F-98.5 F 79-94 15-20 114-145/67-93 96-99 General appearance: under weight - Head Head exam: Present: normocephalic, atraumatic - Eye Eye exam: Present: EOMI Pupils: Present: PHI - Respiratory Respiratory exam: Present: clear to auscultation bilaterally - Cardiovascular Cardiovascular exam: Present: regular rate and rhythm - GI/Abdominal GI/Abdominal exam: Present: soft - Extremities Exam Extremities exam: Present: full ROM - Neurological Exam Neurological exam: Present: alert, oriented X3, CN II-XII intact - Psychiatric Psychiatric exam: Present: normal affect, normal mood, other (Noted as anxious today) - Skin Skin exam: Present: normal color, warm, dry Results - Labs CBC & BMP: 01/06/17 02:45 01/06/17 02:45 Lab Results: I have reviewed the past 24 hour labs (See microbiology report)
[2017-01-06] MEDS: GENTAMICIN INJ 300 MG in SODIUM CHLORIDE 0.9% 100 ML IV SCH (12:20)
[2017-01-06] MEDS: traZODone 50 MG TABLET PO SCH (20:59)
[2017-01-06] MEDS: ATORVASTATIN 40 MG TABLET PO SCH (21:00)
[2017-01-07] MEDS: ALBUTEROL/IPRATROPIUM 3 ML NEB RESP TX SCH ×4 (00:05→10:46)
[2017-01-07] MEDS: ALUMINUM/MAGNES/SIMETH MAX STR 30 ML UDCUP PO PRN ×2 (00:40→10:15)
[2017-01-07] MEDS: AMPICILLIN INJ 2,000 MG in SODIUM CHLORIDE 0.9% 100 ML IV SCH (04:06)
[2017-01-07] MEDS: methylPREDNISolone SOD SUC 40 MG/1 ML VIAL IV SCH (04:16)
[2017-01-07] MEDS ORDERED: AMOXICILLIN 875 MG TABLET PO SCH (09:00)
[2017-01-07] MEDS: PANTOPRAZOLE 40 MG TABLET PO SCH (09:15)
[2017-01-07] MEDS: hydroCHLOROthiazide 12.5 MG CAPSULE PO SCH (09:16)
[2017-01-07] MEDS: ASPIRIN EC 81 MG TABLET PO SCH (09:16)
[2017-01-07] MEDS: ESCITALOPRAM 10 MG TABLET PO SCH (09:16)
[2017-01-07] MEDS: DOCUSATE SODIUM 100 MG CAPSULE PO SCH (09:16)
[2017-01-07] MEDS: CLOPIDOGREL 75 MG TABLET PO SCH (09:16)
[2017-01-07] MEDS: OXYBUTYNIN XL 10 MG TABLET PO SCH (09:16)
[2017-01-07] MEDS: LORazepam 1 MG TABLET PO PRN (09:16)
[2017-01-07] MEDS: POTASSIUM CHLORIDE 20 MEQ/15 ML UDCUP PO SCH (09:17)
[2017-01-07] MEDS: ENOXAPARIN 40 MG/0.4 ML SYRINGE SUBCUT SCH (09:17)
[2017-01-07] MEDS: FLUTICASONE/SALMETEROL 250-50 DISKUS 14 DOSE INH SCH (09:18)
--- NOTE | 2017-01-07 10:06 | Pulmonology Progress Note ---
Pulmonary - PN: Subj Interval history: Patient is a 61-year-old white lady that has very severe COPD. She cannot do much activity at all without being short of breath. She is chronically on oxygen. She says she had a bad night because of heartburn. Her breathing seems to be a little better. She is not coughing up much sputum now. Exam (Progress Note) - Constitutional Vitals: Period Temp Pulse Resp BP Sys/Cabrales Pulse Ox Last 24 Hr 96.4 F-98.4 F 76-91 16-22 116-140/59-75 94-99 Exam: General appearance: no distress, under weight, she looks reasonably comfortable at present. - Head Head exam: Present: normal inspection, normocephalic - Eye Eye exam: Present: EOMI. Absent: scleral icterus Pupils: Present: PHI - ENT ENT exam: Present: normal exam - Neck Neck exam: Present: normal inspection. Absent: lymphadenopathy, thyromegaly - Respiratory Respiratory exam: Present: She has a very prolonged expiration with distant breath sounds but she is moving air a little better without any wheezing. - Cardiovascular Cardiovascular exam: Present: regular rate and rhythm. Absent: gallop, systolic murmur - GI/Abdominal GI/Abdominal exam: Present: normal bowel sounds, soft. She does not have any tenderness or guarding. - Extremities Exam Extremities exam: Absent: calf tenderness, edema, there are no signs of phlebitis. - Neurological Exam Neurological exam: Present: alert, oriented X3 - Psychiatric Psychiatric exam: Present: She looks calm today. - Skin Skin exam: Present: warm, dry Results - Labs CBC & BMP: 01/06/17 02:45 01/06/17 02:45 Assessment and Plan (1) COPD exacerbation Status: Chronic Assessment and plan: Patient has severe COPD but is doing a little better today. She still looks like she is breathing a little better today. Current Visit: No (2) Pneumonia Status: Acute Assessment and plan: Patient is not coughing much and her x-ray does not suggest much pneumonia. She is tolerating antibiotics. Current Visit: No Qualifiers: Pneumonia type: due to unspecified organism Laterality: unspecified laterality (3) Tobacco abuse Status: Chronic Assessment and plan: The patient has a long history of smoking and she says she is doing better. Current Visit: No (4) Coronary artery disease Status: Acute Assessment and plan: Patient has atypical chest pain but no signs of ischemia at present. Current Visit: No (5) Chronic anxiety Status: Acute Assessment and plan: Patient requires a lot of medications for anxiety. She did not rest well and is complaining of heartburn. Will try to review her medicines. Current Visit: Yes
--- NOTE | 2017-01-07 11:37 | Discharge Summary ---
<SenachandanaRaffaele - Last Filed: 01/07/17 11:34> Hospital Course - Hospital Course Hospital Course: Mr. angeles is a 61-year-old female who was admitted through the [facility] on with COPD exacerbation and sepsis. She was admitted to the hospital medicine service and started on breathing treatments and oral Ativan every 6 hours as needed for generalized anxiety. Pulmonology was consulted and agreed with continuation of Duoneb and solumedrol. She was started on ampicillin and gentamicin IV Q24H for sepsis and gram-positive bacteremia coverage with suspicion of enterococcal bacteremia. At this time, the patient has reached maximum benefit from hospitalization and is stable for discharge back to the long-term. She should continue antibiotic coverage with amoxicillin 875 mg PO BID x 5 days. She should follow up outpatient with her PCP, Dr. Coreas, in 1-2 weeks. Diagnosis - Discharge Diagnosis (1) Gram-positive bacteremia Status: Acute (2) Lactic acidosis Status: Acute (3) Sepsis Status: Acute (4) COPD exacerbation Status: Chronic (5) Generalized anxiety disorder Status: Acute Discharge Plan - Discharge Data Disposition: Disch/Xfer to Snf Condition at Discharge: Stable Discharge Diet: heart healthy Activity: increase activity as tolerated Weight Bearing at Discharge: weight bear as tolerated Contact your physician if you experience:: fever over 101, Shortness of breath, pain uncontrolled by pain medications - Discharge Medications New Amoxicillin Cap/Tab 875 mg PO BID #10 tablet Continue Docusate Sodium Cap [Colace Cap] 100 mg PO BID PRN #60 capsule PRN Reason: Constipation Acetaminophen Tab [Tylenol Tab] 650 mg PO Q4H PRN #0 tablet PRN Reason: Fever, Headache, Mild Pain Oxybutynin Xl [Ditropan Xl] 10 mg PO DAILY tablet hydroCHLOROthiazide [Hydrochlorothiazide] 12.5 mg PO DAILY Nitroglycerin [Nitroglycerin SL Tab] 0.4 mg SL Q5M PRN PRN Reason: Chest Pain Potassium Chloride Liquid 10 meq PO DAILY Omeprazole Magnesium [Prilosec Otc] 20 mg PO BEDTIME Diazepam Tab [Valium Tab] 2 mg PO BID PRN PRN Reason: Anxiety Melatonin/Pyridoxine [Melatonin 5 mg Tablet] 10 mg PO BEDTIME Escitalopram Oxalate [Lexapro] 5 mg PO DAILY Levalbuterol Neb [Xopenex Neb] 1.25 mg RESP TX RT Q6H Ipratropium Neb [Atrovent Neb] 500 mcg RESP TX RT Q6H Fluticasone/Salmeterol 250-50 [Advair 250-50] 1 puff INH BID Oxycodone HCl/Acetaminophen [Percocet 10-325 mg Tablet] 1 each PO TID Clopidogrel [Plavix] 75 mg PO DAILY #30 tablet Aspirin [Ecotrin] 81 mg PO DAILY Atorvastatin [Lipitor] 20 mg PO BEDTIME #30 tablet Lactulose Liquid [Chronulac] 20 gm PO Q4H PRN #0 PRN Reason: Constipation traZODone [Desyrel] 25 mg PO BEDTIME predniSONE TAB [PredniSONE] 20 mg PO DAILY - Follow Up or Referral - Forms/Instructions Instructions: Chronic Obstructive Pulmonary Disease (DC) Exam - Constitutional Vitals: Period Temp Pulse Resp BP Sys/Cabrales Pulse Ox Last 24 Hr 96.4 F-98.4 F 76-91 16-22 116-140/58-75 94-99 General appearance: under weight - Head Head exam: Present: normocephalic, atraumatic - 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) - ENT ENT exam: Present: normal oropharynx - Respiratory Respiratory exam: Present: clear to auscultation bilaterally - Cardiovascular Cardiovascular exam: Present: regular rate and rhythm - GI/Abdominal GI/Abdominal exam: Present: normal bowel sounds, soft - Extremities Exam Extremities exam: Present: full ROM - Neurological Exam Neurological exam: Present: alert, oriented X3, CN II-XII intact - Psychiatric Psychiatric exam: Present: normal affect, normal mood - Skin Skin exam: Present: normal color, warm, dry Discharge Results Procedures and tests throughout hospitalization: Pending Orders 01/03/17 06:27 Blood Culture Stat 01/05/17 10:38 Blood Culture Stat Labs on day of discharge: Preliminary micro results at discharge 01/03/17 06:29 Blood Culture - Preliminary Blood Gram Positive Cocci 01/05/17 10:38 Blood Culture - Preliminary Blood No growth at 1 day 01/05/17 10:38 Blood Culture - Preliminary Blood No growth at 1 day DS: Provider Date of admission: 01/03/17 06:55 Primary care physician: Selam Jade MD Attending physician on admission: Hernan Melvin MD Consults: 01/03/17 08:51 Consult to Pastoral Services [CONS] Routine Comment: 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 Source of Request: Patient 01/03/17 08:58 Consult to Case Mgmt/Social Srvs [CONS] Routine Reason for Case Mgmt/Social Srvs: Discharge Planning Consult to Physician [CONS] Routine Comment: COPD exacerbation, chronic resp failure Consulting Provider: Joe Mckenzie Person Notified: debi Date Notified: 01/03/17 Time Notified: 09:06 01/04/17 10:50 Consult to Pharmacy [CONS] Routine Reason for Pharmacy Consult: Dose/Manage Vancomycin 01/05/17 10:09 Consult to Pharmacy [CONS] Routine Reason for Pharmacy Consult: Dose/Manage Gentamicin Discharging clinician: Raffaele Jones MD <David Barrientos - Last Filed: 01/07/17 15:02> Hospital Course - Time spent with patient Time with patient DS: Greater than 30 minutes Diagnosis - Discharge Diagnosis (1) COPD exacerbation Status: Chronic (2) Pneumonia Status: Acute (3) Pleuritic chest pain Status: Acute DS: Provider Expected date of discharge: 01/07/17
[2017-01-07 12:20] VITALS: BP 117/58
[2017-01-07] MEDS ORDERED: PANTOPRAZOLE 40 MG TABLET PO SCH (21:00)
== END 2017-01-07 13:15 | DRG 871 ==
LOC: EDUNIT# → EDBD → N.ED 06:15 → SUATTDRO 06:55 → N.EDINP 07:26 → N.2E 08:35
PROVIDERS: ADMIT Hospitalist; ATTEND Internal Medicine Infectious Disease

== ENCOUNTER 2017-06-12 03:26 | Inpatient (IN) ==
[2017-06-12] MEDS ORDERED: methylPREDNISolone SOD SUC 125 MG/2 ML VIAL IV STA (03:38)
[2017-06-12] MEDS ORDERED: ALBUTEROL/IPRATROPIUM 3 ML NEB RESP TX STA (03:40)
[2017-06-12] MEDS ORDERED: ASPIRIN 325 MG TABLET PO STA (03:41)
[2017-06-12] MEDS ORDERED: ETOMIDATE 20 MG/10 ML VIAL IV STA (03:53)
[2017-06-12] MEDS ORDERED: ROCURONIUM 100 MG/10 ML VIAL IV STA ×2 (03:53→14:19)
[2017-06-12] MEDS ORDERED: ETOMIDATE 20 MG/10 ML VIAL IV ONE (03:55)
[2017-06-12] MEDS ORDERED: ROCURONIUM 100 MG/10 ML VIAL IV ONE ×2 (03:56→14:02)
[2017-06-12 04:43] LABS: Basophils # 0.1 10*3/uL (0.0-0.2); Basophils % 0.3 % (0.0-0.8); Eosinophils % 0.1 % (0.00-10.9); Hematocrit 44.3 VOL% (35.7-47.0); Hemoglobin 13.5 GM/DL (12.0-16.0); Immature Granulocytes % 2.1 %; Immature Granulocytes Absolute 0.34 #; Lymphocytes # 1.1 10*3/uL (1.4-4.0); Lymphocytes % 6.7 % (21.3-54.2); Mean Corpuscular HGB Conc 30.5 GM/DL (32-36); Mean Corpuscular Hemoglobin 29 PG (27-34); Mean Corpuscular Volume 95.9 FL (87-102); Mean Platelet Volume 10.6 FL (9.6-12.0); Monocytes # 1.1 10*3/uL (0.11-0.8); Neutrophils # 13.5 10*3/uL (1.4-7.4); Neutrophils % 83.8 % (38.7-73.9); Platelet Count 438 T/CUMM (130-400); Red Blood Count 4.62 MC/CUMM (3.8-5.5); Red Cell Distribution Width 13.6 % (9.3-17.3); White Blood Count 16.2 T/CUMM (4-12)
[2017-06-12 04:47] LABS: VBG Base Excess 6.3 MEQ/L (0-4); VBG HCO3 30.1 MEQ/L (24-28); VBG Oxygen Saturation 98.3 %; VBG PCO2 51.2 MMHG (41-51); VBG PH 7.412
[2017-06-12 05:04] LABS: Albumin 2.4 G/DL (3.4-5.0); Bilirubin,Total 0.4 MG/DL (0.2-1.0); Calcium 9.2 MG/DL (8.5-10.1); Osmolality,Calculated 294.4 MOS/KG (273-304); Potassium 4.6 MMOL/L (3.5-5.1)
[2017-06-12] MEDS ORDERED: MIDAZOLAM 2 MG/2 ML VIAL IV STA ×2 (05:09→14:16)
[2017-06-12] MEDS ORDERED: MIDAZOLAM 2 MG/2 ML VIAL ONE ×2 (05:10→14:01)
[2017-06-12] MEDS ORDERED: VECURONIUM 10 MG VIAL IV STA (05:10)
[2017-06-12] MEDS ORDERED: VECURONIUM 10 MG VIAL IV ONE (05:10)
[2017-06-12 05:30] LABS: Platelet Estimate Normal
[2017-06-12] MEDS ORDERED: HEPARIN 1,000 UNIT/1 ML VIAL IV STA (06:17)
[2017-06-12] MEDS ORDERED: methylPREDNISolone SOD SUC 125 MG/2 ML VIAL ONE (06:39)
[2017-06-12] MEDS ORDERED: HEPARIN 5,000 UNIT/1 ML VIAL ONE (07:13)
[2017-06-12] MEDS ORDERED: HEPARIN DRIP 25,000 UNITS/500 ML PREMIX IV ONE (07:13)
[2017-06-12] MEDS ORDERED: SODIUM CHLORIDE 0.9% 1,000 ML IV STA (08:09)
[2017-06-12] MEDS: HEPARIN DRIP 25,000 UNITS/500 ML PREMIX IV SCH (08:34)
[2017-06-12] MEDS: PROPOFOL 1,000 MG/100 ML BOTTLE IV SCH ×3 (08:40→21:57)
[2017-06-12] MEDS ORDERED: PROPOFOL 1,000 MG/100 ML BOTTLE IV ONE (09:37)
[2017-06-12] MEDS ORDERED: ALBUTEROL 2.5 MG/3 ML NEB RESP TX PRN (12:28)
[2017-06-12] MEDS ORDERED: ONDANSETRON 4 MG/2 ML VIAL IV PRN (12:28)
[2017-06-12] MEDS: SODIUM CHLORIDE 0.9% 1,000 ML IV SCH ×2 (14:29→19:07)
[2017-06-12] MEDS ORDERED: PANTOPRAZOLE 40 MG VIAL IV ONE (16:52)
[2017-06-12] MEDS: PANTOPRAZOLE 40 MG VIAL IV SCH (17:05)
[2017-06-12] MEDS ORDERED: MEROPENEM 1,000 MG VIAL IV ONE (18:19)
[2017-06-12 18:34] LABS: INR 1.2; PT Patient Result 12.2 SECS
[2017-06-12] MEDS: MEROPENEM 1,000 MG in SYRINGE 1 EACH IV SCH (18:54)
[2017-06-12] MEDS: methylPREDNISolone SOD SUC 40 MG/1 ML VIAL IV SCH ×2 (19:00→21:53)
[2017-06-12] MEDS: ALBUTEROL/IPRATROPIUM 3 ML NEB RESP TX SCH (20:13)
[2017-06-12] MEDS: OSELTAMIVIR 75 MG CAPSULE PO SCH (21:53)
[2017-06-13] MEDS: ACETAMINOPHEN 325 MG TABLET PO PRN ×3 (00:10→21:21)
[2017-06-13] MEDS: SODIUM CHLORIDE 0.9% 1,000 ML IV SCH (00:11)
[2017-06-13] MEDS: ALBUTEROL/IPRATROPIUM 3 ML NEB RESP TX SCH ×4 (00:41→20:16)
[2017-06-13 02:19] LABS: Albumin 1.8 G/DL (3.4-5.0); Bilirubin,Total 0.5 MG/DL (0.2-1.0); Calcium 7.4 MG/DL (8.5-10.1); Magnesium 2.1 MG/DL (1.8-2.4); Potassium 4.5 MMOL/L (3.5-5.1); Total Protein 5.4 G/DL (6.4-8.3)
[2017-06-13 03:49] LABS: ABG Base Excess -0.1 MMOL/L (-2.5-2.5); ABG HCO3 24.3 MMOL/L (20-26); ABG Oxygen Saturation 98.2 % (95-100); ABG TCO2 27.7 MMOL/L (23-27); Allen Test Positive; Pt O2 Delivery Device Ventilator
[2017-06-13 04:08] LABS: ABG PH 7.208 (7.35-7.45)
[2017-06-13 04:09] LABS: ABG PCO2 76.2 MM HG (35-48)
[2017-06-13] MEDS: methylPREDNISolone SOD SUC 40 MG/1 ML VIAL IV SCH ×4 (04:52→21:17)
[2017-06-13] MEDS: MEROPENEM 1,000 MG in SYRINGE 1 EACH IV SCH ×2 (04:55→15:14)
[2017-06-13] MEDS: SODIUM CHLORIDE 0.45% 1,000 ML IV SCH ×2 (04:56→18:06)
[2017-06-13 06:28] LABS: ABG Base Excess 1.5 MMOL/L (-2.5-2.5); ABG HCO3 31.3 MMOL/L (20-26); ABG Oxygen Saturation 98.7 % (95-100); ABG PH 7.212 (7.35-7.45); ABG PO2 218.7 MM HG (80-95); ABG TCO2 33.8 MMOL/L (23-27)
[2017-06-13 06:30] LABS: ABG PCO2 79.8 MM HG (35-48)
[2017-06-13] MEDS: HEPARIN DRIP 25,000 UNITS/500 ML PREMIX IV SCH (07:38)
[2017-06-13] MEDS: PROPOFOL 1,000 MG/100 ML BOTTLE IV SCH ×3 (07:39→22:41)
[2017-06-13] MEDS: CLOPIDOGREL 75 MG TABLET PO SCH (09:09)
[2017-06-13] MEDS: OSELTAMIVIR 75 MG CAPSULE PO SCH ×2 (09:10→21:16)
[2017-06-13] MEDS: ASPIRIN EC 81 MG TABLET PO SCH (09:10)
[2017-06-13] MEDS: NEBIVOLOL 5 MG TABLET PO SCH (09:10)
[2017-06-13] MEDS: ENOXAPARIN 60 MG/0.6 ML SYRINGE SUBCUT SCH ×2 (09:25→21:16)
[2017-06-13] MEDS ORDERED: ZINC OXIDE PASTE 113 GM TUBE TOP PRN (10:27)
[2017-06-13] MEDS ORDERED: SKIN HEALING OINT (AQUAPHOR) 50 GM TUBE TOP PRN (10:28)
[2017-06-13] MEDS ORDERED: GLUCAGON 1 MG VIAL IM PRN (11:58)
[2017-06-13] MEDS ORDERED: DEXTROSE 50% 25 GM/50 ML VIAL IV PRN (11:58)
[2017-06-13] MEDS: PANTOPRAZOLE 40 MG VIAL IV SCH (12:48)
[2017-06-13] MEDS: INSULIN REGULAR 100 UNIT/ML SUBCUT SCH ×3 (12:49→23:18)
[2017-06-13] MEDS: ATORVASTATIN 40 MG TABLET PO SCH (21:16)
[2017-06-14] MEDS: ALBUTEROL/IPRATROPIUM 3 ML NEB RESP TX SCH ×4 (01:33→20:22)
[2017-06-14 03:33] LABS: ABG Base Excess 5.6 MMOL/L (-2.5-2.5); ABG HCO3 29.5 MMOL/L (20-26); ABG Oxygen Saturation 98.7 % (95-100); ABG PH 7.365 (7.35-7.45); ABG TCO2 29.2 MMOL/L (23-27); Allen Test Positive; Pt O2 Delivery Device Ventilator
[2017-06-14] MEDS: methylPREDNISolone SOD SUC 40 MG/1 ML VIAL IV SCH ×4 (03:40→21:21)
[2017-06-14] MEDS: MEROPENEM 1,000 MG in SYRINGE 1 EACH IV SCH ×2 (03:41→15:36)
[2017-06-14 05:50] LABS: Basophils # 0.1 10*3/uL (0.0-0.2); Basophils % 0.2 % (0.0-0.8); Hematocrit 38.9 VOL% (35.7-47.0); Hemoglobin 11.3 GM/DL (12.0-16.0); Immature Granulocytes % 1.8 %; Immature Granulocytes Absolute 0.51 #; Lymphocytes # 0.2 10*3/uL (1.4-4.0); Lymphocytes % 0.8 % (21.3-54.2); Mean Corpuscular Hemoglobin 29 PG (27-34); Mean Corpuscular Volume 101.3 FL (87-102); Monocytes # 0.6 10*3/uL (0.11-0.8); Monocytes % 2.2 % (1.7-12.7); NRBC # 0.04 10*3/uL; Neutrophils # 27.3 10*3/uL (1.4-7.4); Platelet Count 284 T/CUMM (130-400); Red Blood Count 3.84 MC/CUMM (3.8-5.5); Red Cell Distribution Width 13.7 % (9.3-17.3); White Blood Count 28.7 T/CUMM (4-12)
[2017-06-14 06:03] LABS: Giant Platelets Few; Hypochromasia 1+; Lymphocytes 3 % (20-55); Ovalocytes Slight; Platelet Estimate Adequate; Segmented Neutrophils 93 % (50-85); Total Cells Counted 100
[2017-06-14 06:07] LABS: Magnesium 2.5 MG/DL (1.8-2.4); Prealbumin 9.3 MG/DL (20-40)
[2017-06-14 06:16] LABS: Calcium 8.5 MG/DL (8.5-10.1); Magnesium 2.3 MG/DL (1.8-2.4); Osmolality,Calculated 308.4 MOS/KG (273-304); Risk Ratio 3.44; VLDL CHOLESTEROL 26.8 MG/DL
[2017-06-14] MEDS: INSULIN REGULAR 100 UNIT/ML SUBCUT SCH ×3 (07:00→18:27)
[2017-06-14] MEDS: ACETAMINOPHEN 325 MG TABLET PO PRN (07:01)
[2017-06-14] MEDS: PROPOFOL 1,000 MG/100 ML BOTTLE IV SCH ×2 (08:26→21:32)
[2017-06-14] MEDS: ENOXAPARIN 60 MG/0.6 ML SYRINGE SUBCUT SCH ×2 (09:08→21:20)
[2017-06-14] MEDS: OSELTAMIVIR 75 MG CAPSULE PO SCH ×2 (09:08→21:20)
[2017-06-14] MEDS: ASPIRIN EC 81 MG TABLET PO SCH (09:08)
[2017-06-14] MEDS: CLOPIDOGREL 75 MG TABLET PO SCH (09:08)
[2017-06-14] MEDS: NEBIVOLOL 5 MG TABLET PO SCH ×2 (09:08→14:11)
[2017-06-14] MEDS: SODIUM CHLORIDE 0.45% 1,000 ML IV SCH ×2 (09:15→20:47)
[2017-06-14] MEDS: clonazePAM 0.5 MG TABLET PO SCH ×2 (11:09→21:21)
[2017-06-14] MEDS ORDERED: NEBIVOLOL 5 MG TABLET PO SCH (11:30)
[2017-06-14] MEDS: PANTOPRAZOLE 40 MG VIAL IV SCH (11:45)
[2017-06-14] MEDS: ISOSORBIDE MONONITRATE 30 MG TABLET PO SCH (13:10)
[2017-06-14] MEDS ORDERED: HYDROcod/ACETAMIN 7.5-325 MG/15 ML UDCUP PO PRN (17:01)
[2017-06-14] MEDS: fentaNYL 50 MCG/HR PATCH TRANSDERM SCH (17:30)
[2017-06-14] MEDS: ATORVASTATIN 40 MG TABLET PO SCH (21:23)
[2017-06-15] MEDS: INSULIN REGULAR 100 UNIT/ML SUBCUT SCH ×4 (00:02→18:15)
[2017-06-15] MEDS: ALBUTEROL/IPRATROPIUM 3 ML NEB RESP TX SCH ×4 (00:54→19:25)
[2017-06-15 02:08] LABS: Basophils % 0.1 % (0.0-0.8); Hematocrit 33.4 VOL% (35.7-47.0); Hemoglobin 9.9 GM/DL (12.0-16.0); Immature Granulocytes Absolute 0.45 #; Lymphocytes # 0.2 10*3/uL (1.4-4.0); Mean Corpuscular HGB Conc 29.6 GM/DL (32-36); Mean Corpuscular Hemoglobin 30 PG (27-34); Mean Corpuscular Volume 99.4 FL (87-102); Mean Platelet Volume 10.8 FL (9.6-12.0); Monocytes # 0.6 10*3/uL (0.11-0.8); Monocytes % 2.8 % (1.7-12.7); NRBC # 0.02 10*3/uL; Neutrophils # 21.2 10*3/uL (1.4-7.4); Neutrophils % 94.1 % (38.7-73.9); Platelet Count 267 T/CUMM (130-400); Red Blood Count 3.36 MC/CUMM (3.8-5.5); Red Cell Distribution Width 13.8 % (9.3-17.3); White Blood Count 22.5 T/CUMM (4-12)
[2017-06-15 02:44] LABS: Calcium 8.2 MG/DL (8.5-10.1); Magnesium 2.3 MG/DL (1.8-2.4); Osmolality,Calculated 305.4 MOS/KG (273-304); Potassium 4.6 MMOL/L (3.5-5.1)
[2017-06-15] MEDS: PROPOFOL 1,000 MG/100 ML BOTTLE IV SCH ×5 (02:48→21:18)
[2017-06-15 02:51] LABS: Band Neutrophils 14 % (0-10); Lymphocytes 1 % (20-55); Poikilocytosis 1+; Segmented Neutrophils 84 % (50-85); Total Cells Counted 100
[2017-06-15] MEDS: methylPREDNISolone SOD SUC 40 MG/1 ML VIAL IV SCH ×4 (02:51→21:11)
[2017-06-15 02:52] LABS: Anisocytosis 1+
[2017-06-15 03:57] LABS: Allen Test Positive; Pt O2 Delivery Device Ventilator
[2017-06-15] MEDS: MEROPENEM 1,000 MG in SYRINGE 1 EACH IV SCH ×2 (03:59→15:56)
[2017-06-15 04:01] LABS: ABG Base Excess 7.3 MMOL/L (-2.5-2.5); ABG HCO3 34.3 MMOL/L (20-26); ABG Oxygen Saturation 97.1 % (95-100); ABG PCO2 62.6 MM HG (35-48); ABG PH 7.357 (7.35-7.45); ABG PO2 98.4 MM HG (80-95); ABG TCO2 36.3 MMOL/L (23-27)
[2017-06-15] MEDS: AMINOPHYLLINE 500 MG in SODIUM CHLORIDE 0.9% 480 ML IV SCH (09:30)
[2017-06-15] MEDS: CLOPIDOGREL 75 MG TABLET PO SCH (10:57)
[2017-06-15] MEDS: ISOSORBIDE MONONITRATE 30 MG TABLET PO SCH (10:57)
[2017-06-15] MEDS: clonazePAM 0.5 MG TABLET PO SCH ×2 (10:57→21:10)
[2017-06-15] MEDS: NEBIVOLOL 5 MG TABLET PO SCH (10:58)
[2017-06-15] MEDS: OSELTAMIVIR 75 MG CAPSULE PO SCH ×2 (10:58→21:11)
[2017-06-15] MEDS: ESCITALOPRAM 10 MG TABLET PO SCH (10:58)
[2017-06-15] MEDS: ENOXAPARIN 60 MG/0.6 ML SYRINGE SUBCUT SCH (10:59)
[2017-06-15] MEDS: ASPIRIN EC 81 MG TABLET PO SCH (10:59)
[2017-06-15] MEDS: PANTOPRAZOLE 40 MG VIAL IV SCH (12:04)
[2017-06-15] MEDS: ATORVASTATIN 40 MG TABLET PO SCH (21:11)
[2017-06-16] MEDS: INSULIN REGULAR 100 UNIT/ML SUBCUT SCH ×4 (00:13→18:08)
[2017-06-16] MEDS: ALBUTEROL/IPRATROPIUM 3 ML NEB RESP TX SCH ×4 (00:53→20:06)
[2017-06-16] MEDS: AMINOPHYLLINE 500 MG in SODIUM CHLORIDE 0.9% 480 ML IV SCH ×2 (01:58→15:36)
[2017-06-16] MEDS: PROPOFOL 1,000 MG/100 ML BOTTLE IV SCH ×2 (02:27→08:08)
[2017-06-16] MEDS: methylPREDNISolone SOD SUC 40 MG/1 ML VIAL IV SCH ×4 (03:02→21:37)
[2017-06-16 03:47] LABS: Calcium 8.2 MG/DL (8.5-10.1); Magnesium 2.2 MG/DL (1.8-2.4); Osmolality,Calculated 306.3 MOS/KG (273-304)
[2017-06-16 04:09] LABS: ABG Base Excess 12.3 MMOL/L (-2.5-2.5); ABG HCO3 40.4 MMOL/L (20-26); ABG Oxygen Saturation 97.6 % (95-100); ABG PH 7.341 (7.35-7.45); ABG PO2 111.2 MM HG (80-95); ABG TCO2 42.7 MMOL/L (23-27)
[2017-06-16 04:11] LABS: ABG PCO2 76.4 MM HG (35-48)
[2017-06-16] MEDS: MEROPENEM 1,000 MG in SYRINGE 1 EACH IV SCH ×2 (04:54→15:43)
[2017-06-16] MEDS: clonazePAM 0.5 MG TABLET PO SCH ×2 (10:31→21:36)
[2017-06-16] MEDS: NEBIVOLOL 5 MG TABLET PO SCH (10:31)
[2017-06-16] MEDS: ISOSORBIDE MONONITRATE 30 MG TABLET PO SCH (10:31)
[2017-06-16] MEDS: ESCITALOPRAM 10 MG TABLET PO SCH (10:32)
[2017-06-16] MEDS: CLOPIDOGREL 75 MG TABLET PO SCH (10:33)
[2017-06-16] MEDS: OSELTAMIVIR 75 MG CAPSULE PO SCH ×2 (10:33→21:37)
[2017-06-16] MEDS: ASPIRIN EC 81 MG TABLET PO SCH (10:33)
[2017-06-16] MEDS: ENOXAPARIN 40 MG/0.4 ML SYRINGE SUBCUT SCH (10:33)
[2017-06-16] MEDS: PANTOPRAZOLE 40 MG VIAL IV SCH (14:33)
[2017-06-16] MEDS: ATORVASTATIN 40 MG TABLET PO SCH (21:36)
[2017-06-17] MEDS: INSULIN REGULAR 100 UNIT/ML SUBCUT SCH ×4 (00:25→19:06)
[2017-06-17] MEDS: ALBUTEROL/IPRATROPIUM 3 ML NEB RESP TX SCH ×4 (01:26→19:27)
[2017-06-17] MEDS: PROPOFOL 1,000 MG/100 ML BOTTLE IV SCH ×2 (02:06→09:55)
[2017-06-17] MEDS: methylPREDNISolone SOD SUC 40 MG/1 ML VIAL IV SCH ×4 (03:38→21:41)
[2017-06-17] MEDS: MEROPENEM 1,000 MG in SYRINGE 1 EACH IV SCH ×2 (03:41→15:41)
[2017-06-17 04:36] LABS: Basophils # 0.1 10*3/uL (0.0-0.2); Basophils % 0.2 % (0.0-0.8); Hematocrit 33.3 VOL% (35.7-47.0); Hemoglobin 10.1 GM/DL (12.0-16.0); Immature Granulocytes % 2.2 %; Immature Granulocytes Absolute 0.55 #; Lymphocytes # 0.3 10*3/uL (1.4-4.0); Mean Corpuscular HGB Conc 30.3 GM/DL (32-36); Mean Corpuscular Hemoglobin 30 PG (27-34); Mean Corpuscular Volume 97.7 FL (87-102); Mean Platelet Volume 11.2 FL (9.6-12.0); Monocytes # 0.9 10*3/uL (0.11-0.8); Monocytes % 3.8 % (1.7-12.7); NRBC # 0.02 10*3/uL; Neutrophils # 22.9 10*3/uL (1.4-7.4); Neutrophils % 92.8 % (38.7-73.9); Platelet Count 261 T/CUMM (130-400); Red Blood Count 3.41 MC/CUMM (3.8-5.5); Red Cell Distribution Width 13.8 % (9.3-17.3); White Blood Count 24.7 T/CUMM (4-12)
[2017-06-17 04:43] LABS: ABG Base Excess 18.1 MMOL/L (-2.5-2.5); ABG HCO3 42.2 MMOL/L (20-26); ABG PCO2 66.7 MM HG (35-48); ABG PH 7.444 (7.35-7.45); ABG TCO2 41.5 MMOL/L (23-27)
[2017-06-17 05:17] LABS: Band Neutrophils 20 % (0-10); Lymphocytes 1 % (20-55); Nucleated Red Blood Cells 3 (0-5); Segmented Neutrophils 78 % (50-85); Total Cells Counted 100
[2017-06-17 05:23] LABS: Albumin 2.1 G/DL (3.4-5.0); Bilirubin,Total 0.6 MG/DL (0.2-1.0); Calcium 8.4 MG/DL (8.5-10.1); Osmolality,Calculated 302.4 MOS/KG (273-304); Potassium 4.7 MMOL/L (3.5-5.1); Total Protein 5.3 G/DL (6.4-8.3)
[2017-06-17] MEDS: AMINOPHYLLINE 500 MG in SODIUM CHLORIDE 0.9% 480 ML IV SCH ×2 (06:05→22:12)
[2017-06-17] MEDS: clonazePAM 0.5 MG TABLET PO SCH ×2 (09:38→21:40)
[2017-06-17] MEDS: ESCITALOPRAM 10 MG TABLET PO SCH (09:38)
[2017-06-17] MEDS: CLOPIDOGREL 75 MG TABLET PO SCH (09:39)
[2017-06-17] MEDS: ASPIRIN EC 81 MG TABLET PO SCH (09:39)
[2017-06-17] MEDS: NEBIVOLOL 5 MG TABLET PO SCH (09:39)
[2017-06-17] MEDS: OSELTAMIVIR 75 MG CAPSULE PO SCH ×2 (09:39→21:40)
[2017-06-17] MEDS: ENOXAPARIN 40 MG/0.4 ML SYRINGE SUBCUT SCH (09:40)
[2017-06-17] MEDS: ISOSORBIDE MONONITRATE 30 MG TABLET PO SCH (09:41)
[2017-06-17] MEDS: fentaNYL 50 MCG/HR PATCH TRANSDERM SCH (09:44)
[2017-06-17] MEDS: PANTOPRAZOLE 40 MG VIAL IV SCH (13:23)
[2017-06-17] MEDS: POTASSIUM PHOS/SOD PHOS POWDER 250 MG PACK PER TUBE SCH ×2 (15:00→22:09)
[2017-06-17] MEDS: ATORVASTATIN 40 MG TABLET PO SCH (21:40)
[2017-06-18] MEDS: INSULIN REGULAR 100 UNIT/ML SUBCUT SCH ×4 (00:14→18:18)
[2017-06-18] MEDS: ALBUTEROL/IPRATROPIUM 3 ML NEB RESP TX SCH ×4 (00:52→19:21)
[2017-06-18 03:41] LABS: Basophils # 0.1 10*3/uL (0.0-0.2); Basophils % 0.2 % (0.0-0.8); Hematocrit 30.1 VOL% (35.7-47.0); Hemoglobin 9.2 GM/DL (12.0-16.0); Immature Granulocytes % 2.2 %; Immature Granulocytes Absolute 0.54 #; Lymphocytes # 0.2 10*3/uL (1.4-4.0); Mean Corpuscular HGB Conc 30.6 GM/DL (32-36); Mean Corpuscular Hemoglobin 30 PG (27-34); Mean Corpuscular Volume 96.8 FL (87-102); Mean Platelet Volume 11.6 FL (9.6-12.0); Monocytes # 0.8 10*3/uL (0.11-0.8); Monocytes % 3.3 % (1.7-12.7); NRBC # 0.03 10*3/uL; Neutrophils # 22.9 10*3/uL (1.4-7.4); Neutrophils % 93.3 % (38.7-73.9); Platelet Count 217 T/CUMM (130-400); Red Blood Count 3.11 MC/CUMM (3.8-5.5); Red Cell Distribution Width 13.9 % (9.3-17.3); White Blood Count 24.6 T/CUMM (4-12)
[2017-06-18 03:48] LABS: ABG Base Excess 19.9 MMOL/L (-2.5-2.5); ABG HCO3 44.2 MMOL/L (20-26); ABG Oxygen Saturation 95.4 % (95-100); ABG PCO2 58.8 MM HG (35-48); ABG PH 7.505 (7.35-7.45); ABG PO2 93.5 MM HG (80-95); ABG TCO2 42.4 MMOL/L (23-27); Allen Test Positive; Pt O2 Delivery Device Ventilator
[2017-06-18] MEDS: methylPREDNISolone SOD SUC 40 MG/1 ML VIAL IV SCH ×4 (04:13→21:55)
[2017-06-18] MEDS: MEROPENEM 1,000 MG in SYRINGE 1 EACH IV SCH ×2 (04:17→15:36)
[2017-06-18 04:19] LABS: Alanine Aminotransferase 45 U/L (13-56); Albumin 1.9 G/DL (3.4-5.0); Alkaline Phosphatase 100 U/L (45-117); Aspartate Amino Transferase 39 U/L (0-37); Blood Urea Nitrogen 35 MG/DL (7-18); Calcium 8.1 MG/DL (8.5-10.1); Glucose 192 MG/DL (74-106); Magnesium 2.2 MG/DL (1.8-2.4); Osmolality,Calculated 300.7 MOS/KG (273-304); Potassium 4.6 MMOL/L (3.5-5.1); Sodium 145 MMOL/L (136-145); Total Protein 4.9 G/DL (6.4-8.3)
[2017-06-18 05:18] LABS: Hypochromasia 1+; Lymphocytes 2 % (20-55); Segmented Neutrophils 97 % (50-85); Total Cells Counted 100
[2017-06-18 05:19] LABS: Platelet Estimate Normal
[2017-06-18] MEDS: POTASSIUM PHOS/SOD PHOS POWDER 250 MG PACK PER TUBE SCH (05:59)
[2017-06-18] MEDS ORDERED: NEBIVOLOL 10 MG TABLET PO SCH (09:14)
[2017-06-18] MEDS: PROPOFOL 1,000 MG/100 ML BOTTLE IV SCH (10:50)
[2017-06-18] MEDS: ISOSORBIDE DINITRATE 10 MG TABLET PO SCH ×3 (10:52→21:00)
[2017-06-18] MEDS: clonazePAM 0.5 MG TABLET PO SCH ×2 (10:52→21:54)
[2017-06-18] MEDS: ESCITALOPRAM 10 MG TABLET PO SCH (10:53)
[2017-06-18] MEDS: CLOPIDOGREL 75 MG TABLET PO SCH (10:53)
[2017-06-18] MEDS: ASPIRIN EC 81 MG TABLET PO SCH (10:53)
[2017-06-18] MEDS: ENOXAPARIN 40 MG/0.4 ML SYRINGE SUBCUT SCH (10:53)
[2017-06-18] MEDS: NEBIVOLOL 5 MG TABLET PO SCH (11:31)
[2017-06-18] MEDS ORDERED: NEBIVOLOL 10 MG TABLET PO ONE (12:00)
[2017-06-18] MEDS: AMINOPHYLLINE 500 MG in SODIUM CHLORIDE 0.9% 480 ML IV SCH (12:36)
[2017-06-18] MEDS: PANTOPRAZOLE 40 MG VIAL IV SCH (13:24)
[2017-06-18] MEDS: ATORVASTATIN 40 MG TABLET PO SCH (21:54)
[2017-06-19] MEDS: ALBUTEROL/IPRATROPIUM 3 ML NEB RESP TX SCH ×4 (00:10→19:40)
[2017-06-19] MEDS: INSULIN REGULAR 100 UNIT/ML SUBCUT SCH ×5 (00:58→23:57)
[2017-06-19] MEDS: MEROPENEM 1,000 MG in SYRINGE 1 EACH IV SCH ×2 (03:28→15:48)
[2017-06-19] MEDS: methylPREDNISolone SOD SUC 40 MG/1 ML VIAL IV SCH ×4 (03:28→21:18)
[2017-06-19] MEDS: AMINOPHYLLINE 500 MG in SODIUM CHLORIDE 0.9% 480 ML IV SCH ×3 (03:29→17:24)
[2017-06-19] MEDS: PROPOFOL 1,000 MG/100 ML BOTTLE IV SCH ×3 (03:33→23:58)
[2017-06-19 05:30] LABS: Magnesium 2.3 MG/DL (1.8-2.4); Prealbumin 30.7 MG/DL (20-40)
[2017-06-19] MEDS: ISOSORBIDE DINITRATE 10 MG TABLET PO SCH ×3 (09:20→21:18)
[2017-06-19] MEDS: ESCITALOPRAM 10 MG TABLET PO SCH (09:20)
[2017-06-19] MEDS: ASPIRIN EC 81 MG TABLET PO SCH (09:20)
[2017-06-19] MEDS: CLOPIDOGREL 75 MG TABLET PO SCH (09:20)
[2017-06-19] MEDS: ENOXAPARIN 40 MG/0.4 ML SYRINGE SUBCUT SCH (09:20)
[2017-06-19] MEDS: clonazePAM 0.5 MG TABLET PO SCH ×2 (10:05→21:17)
[2017-06-19] MEDS: NEBIVOLOL 10 MG TABLET PO SCH (11:04)
[2017-06-19] MEDS ORDERED: hydrALAZINE 20 MG/1 ML VIAL IV PRN (12:21)
[2017-06-19] MEDS: PANTOPRAZOLE 40 MG VIAL IV SCH (12:31)
[2017-06-19] MEDS ORDERED: SODIUM CHLORIDE 0.9% 250 ML IV ONE (15:24)
[2017-06-19] MEDS: ATORVASTATIN 40 MG TABLET PO SCH (21:18)
[2017-06-20] MEDS: ALBUTEROL/IPRATROPIUM 3 ML NEB RESP TX SCH ×4 (01:10→18:06)
[2017-06-20] MEDS: methylPREDNISolone SOD SUC 40 MG/1 ML VIAL IV SCH ×4 (02:57→21:34)
[2017-06-20] MEDS: MEROPENEM 1,000 MG in SYRINGE 1 EACH IV SCH ×2 (03:01→16:35)
[2017-06-20 03:08] LABS: ABG Base Excess 13.9 MMOL/L (-2.5-2.5); ABG HCO3 37.7 MMOL/L (20-26); ABG Oxygen Saturation 94.6 % (95-100); ABG PCO2 57.1 MM HG (35-48); ABG PH 7.459 (7.35-7.45); ABG PO2 75.1 MM HG (80-95)
[2017-06-20] MEDS: INSULIN REGULAR 100 UNIT/ML SUBCUT SCH ×3 (05:52→18:16)
[2017-06-20 06:02] LABS: Basophils # 0.1 10*3/uL (0.0-0.2); Basophils % 0.2 % (0.0-0.8); Hematocrit 35.8 VOL% (35.7-47.0); Hemoglobin 11.1 GM/DL (12.0-16.0); Immature Granulocytes % 1.7 %; Immature Granulocytes Absolute 0.47 #; Lymphocytes # 0.2 10*3/uL (1.4-4.0); Lymphocytes % 0.6 % (21.3-54.2); Mean Corpuscular Hemoglobin 30 PG (27-34); Mean Corpuscular Volume 97.3 FL (87-102); Mean Platelet Volume 11.4 FL (9.6-12.0); Monocytes % 3.7 % (1.7-12.7); NRBC # 0.02 10*3/uL; Neutrophils # 25.9 10*3/uL (1.4-7.4); Neutrophils % 93.8 % (38.7-73.9); Platelet Count 294 T/CUMM (130-400); Red Blood Count 3.68 MC/CUMM (3.8-5.5); Red Cell Distribution Width 14.3 % (9.3-17.3); White Blood Count 27.6 T/CUMM (4-12)
[2017-06-20 06:27] LABS: Basophilic Stippling Slight; Hypochromasia Slight; Lymphocytes 2 % (20-55); Macrocytosis Slight; Platelet Estimate Adequate; Polychromasia Slight; Segmented Neutrophils 93 % (50-85); Total Cells Counted 100
[2017-06-20 06:39] LABS: Albumin 2.2 G/DL (3.4-5.0); Bilirubin,Total 0.8 MG/DL (0.2-1.0); Calcium 8.6 MG/DL (8.5-10.1); Osmolality,Calculated 300.7 MOS/KG (273-304); Potassium 4.3 MMOL/L (3.5-5.1); Total Protein 5.5 G/DL (6.4-8.3)
[2017-06-20] MEDS: PROPOFOL 1,000 MG/100 ML BOTTLE IV SCH ×3 (07:41→17:16)
[2017-06-20] MEDS: CLOPIDOGREL 75 MG TABLET PO SCH (10:25)
[2017-06-20] MEDS: ISOSORBIDE DINITRATE 10 MG TABLET PO SCH ×3 (10:25→21:34)
[2017-06-20] MEDS: ASPIRIN EC 81 MG TABLET PO SCH (10:25)
[2017-06-20] MEDS: NEBIVOLOL 10 MG TABLET PO SCH (10:25)
[2017-06-20] MEDS: ESCITALOPRAM 10 MG TABLET PO SCH (10:25)
[2017-06-20] MEDS: clonazePAM 0.5 MG TABLET PO SCH ×2 (10:25→21:34)
[2017-06-20] MEDS: ENOXAPARIN 40 MG/0.4 ML SYRINGE SUBCUT SCH (10:26)
[2017-06-20] MEDS: AMINOPHYLLINE 500 MG in SODIUM CHLORIDE 0.9% 480 ML IV SCH (12:28)
[2017-06-20] MEDS: PANTOPRAZOLE 40 MG VIAL IV SCH (12:30)
[2017-06-20] MEDS: ATORVASTATIN 40 MG TABLET PO SCH (21:34)
[2017-06-21] MEDS: ALBUTEROL/IPRATROPIUM 3 ML NEB RESP TX SCH ×4 (00:10→19:15)
[2017-06-21] MEDS: INSULIN REGULAR 100 UNIT/ML SUBCUT SCH ×3 (00:20→12:20)
[2017-06-21] MEDS: AMINOPHYLLINE 500 MG in SODIUM CHLORIDE 0.9% 480 ML IV SCH ×3 (00:37→15:39)
[2017-06-21] MEDS: PROPOFOL 1,000 MG/100 ML BOTTLE IV SCH ×2 (00:49→12:19)
[2017-06-21] MEDS: methylPREDNISolone SOD SUC 40 MG/1 ML VIAL IV SCH ×4 (03:52→21:34)
[2017-06-21] MEDS: MEROPENEM 1,000 MG in SYRINGE 1 EACH IV SCH ×2 (03:52→16:15)
[2017-06-21 04:00] LABS: ABG Base Excess 13.5 MMOL/L (-2.5-2.5); ABG HCO3 39.7 MMOL/L (20-26); ABG Oxygen Saturation 97.4 % (95-100); ABG PCO2 59.2 MM HG (35-48); ABG PH 7.444 (7.35-7.45); ABG TCO2 41.5 MMOL/L (23-27); Allen Test Positive
[2017-06-21 04:41] LABS: Basophils % 0.2 % (0.0-0.8); Hematocrit 34.4 VOL% (35.7-47.0); Hemoglobin 10.5 GM/DL (12.0-16.0); Immature Granulocytes % 1.4 %; Immature Granulocytes Absolute 0.36 #; Lymphocytes # 0.2 10*3/uL (1.4-4.0); Lymphocytes % 0.6 % (21.3-54.2); Mean Corpuscular HGB Conc 30.5 GM/DL (32-36); Mean Corpuscular Hemoglobin 30 PG (27-34); Mean Corpuscular Volume 97.7 FL (87-102); Mean Platelet Volume 11.6 FL (9.6-12.0); Monocytes # 1.3 10*3/uL (0.11-0.8); Neutrophils # 24.5 10*3/uL (1.4-7.4); Neutrophils % 92.8 % (38.7-73.9); Platelet Count 290 T/CUMM (130-400); Red Blood Count 3.52 MC/CUMM (3.8-5.5); Red Cell Distribution Width 14.5 % (9.3-17.3); White Blood Count 26.4 T/CUMM (4-12)
[2017-06-21 05:31] LABS: Calcium 8.3 MG/DL (8.5-10.1); Osmolality,Calculated 302.7 MOS/KG (273-304); Potassium 4.5 MMOL/L (3.5-5.1)
[2017-06-21 05:55] LABS: Band Neutrophils 2 % (0-10); Hypochromasia Slight; Platelet Estimate Normal; Segmented Neutrophils 97 % (50-85)
[2017-06-21 05:56] LABS: Polychromasia Slight; Total Cells Counted 100
[2017-06-21] MEDS: ISOSORBIDE DINITRATE 10 MG TABLET PO SCH ×3 (10:48→23:31)
[2017-06-21] MEDS: clonazePAM 0.5 MG TABLET PO SCH ×2 (10:48→23:31)
[2017-06-21] MEDS: ESCITALOPRAM 10 MG TABLET PO SCH (10:49)
[2017-06-21] MEDS: ENOXAPARIN 40 MG/0.4 ML SYRINGE SUBCUT SCH (10:49)
[2017-06-21] MEDS: CLOPIDOGREL 75 MG TABLET PO SCH (10:49)
[2017-06-21] MEDS: NEBIVOLOL 10 MG TABLET PO SCH (10:49)
[2017-06-21] MEDS: ASPIRIN EC 81 MG TABLET PO SCH (10:49)
[2017-06-21] MEDS ORDERED: MORPHINE 2 MG/1 ML SYRINGE ONE (11:28)
[2017-06-21] MEDS: MORPHINE 2 MG/1 ML SYRINGE IV PRN ×7 (11:30→23:34)
[2017-06-21] MEDS: PANTOPRAZOLE 40 MG VIAL IV SCH (12:22)
[2017-06-21] MEDS: ATORVASTATIN 40 MG TABLET PO SCH (23:31)
[2017-06-21] MEDS: ACETAMINOPHEN 650 MG SUPP RECTAL PRN (23:34)
[2017-06-22] MEDS: ALBUTEROL/IPRATROPIUM 3 ML NEB RESP TX SCH ×3 (01:37→13:02)
[2017-06-22] MEDS: ACETAMINOPHEN 650 MG SUPP RECTAL PRN ×2 (02:30→12:08)
[2017-06-22] MEDS: methylPREDNISolone SOD SUC 40 MG/1 ML VIAL IV SCH ×3 (04:09→16:05)
[2017-06-22] MEDS: MEROPENEM 1,000 MG in SYRINGE 1 EACH IV SCH ×2 (04:10→16:06)
[2017-06-22] MEDS: MORPHINE 2 MG/1 ML SYRINGE IV PRN ×2 (06:09→09:51)
[2017-06-22] MEDS: AMINOPHYLLINE 500 MG in SODIUM CHLORIDE 0.9% 480 ML IV SCH (07:41)
[2017-06-22] MEDS: clonazePAM 0.5 MG TABLET PO SCH (08:04)
[2017-06-22] MEDS: PROPOFOL 1,000 MG/100 ML BOTTLE IV SCH (08:04)
[2017-06-22] MEDS: NEBIVOLOL 10 MG TABLET PO SCH (08:04)
[2017-06-22] MEDS: ENOXAPARIN 40 MG/0.4 ML SYRINGE SUBCUT SCH (08:04)
[2017-06-22] MEDS: ISOSORBIDE DINITRATE 10 MG TABLET PO SCH ×2 (08:04→16:05)
[2017-06-22] MEDS: ASPIRIN EC 81 MG TABLET PO SCH (08:04)
[2017-06-22] MEDS: ESCITALOPRAM 10 MG TABLET PO SCH (08:04)
[2017-06-22] MEDS: CLOPIDOGREL 75 MG TABLET PO SCH (08:05)
[2017-06-22 11:52] VITALS: BP 58/40
[2017-06-22] MEDS: PANTOPRAZOLE 40 MG VIAL IV SCH (12:08)
== END 2017-06-22 16:40 | disposition expired | DRG 207 ==
LOC: N.ED 03:26 → SUPCPDRO 12:28 → N.EDINP 12:28 → SUATTDRO 12:28 → N.ICU 18:13 → N.2E 06-21 17:18
PROVIDERS: ADMIT Internal Medicine; ATTEND Family Medicine